=== PATIENT | female | born 1960 | race African-American/Black ===

== ENCOUNTER 2016-05-25 14:38 | Emergency (ER) | payer MEDICAID, MEDICARE, OTHER ==
[~2016-05-25] VITALS: Ht 162.6 cm; Wt 99.8 kg
[~2016-05-25 14:38] MED LIST: ALBUTEROL SULF8.5 GM INH; ASPIR 8181 MG ORAL; AZITHROMYCIN250 MG ORAL; BENADRYL25 MG PO; CIPROFLOXACIN500 M2 ORAL; COZAAR25 MG ORAL; ENALAPRIL MALEA20 MG ORAL; GUAIFENESIN-CO118 M1 ORAL; IBUPROFEN600 MG ORAL; METFORMIN HCL500 M1 ORAL; METOPROLOL TART50 MG ORAL; NORCO 5-325 TA1 EACH ORAL
[2016-05-25 15:10] VITALS: BP 155/95
[2016-05-25] MEDS ORDERED: IBUPROFEN600 MG ORAL (15:28)
[2016-05-25] MEDS ORDERED: ZITHROMAX250 MG ORAL (15:28)
[2016-05-25] MEDS ORDERED: PROMETHAZINE-D118 ML ORAL (15:28)
[2016-05-25 15:35] VITALS: BP 155/95
--- NOTE | 2016-05-25 22:31 | Emergency Room Report ---
History of Present Illness General Chief Complaint: Sore Throat Present Illness HPI The patient is a 55-year-old female presenting for sore throat which began one week prior. Patient states pain is a 5/10 dull ache to the throat and is worse with swallowing. No radiation of pain. The patient also admits to a dry cough. The patient denies any sick contacts or recent travel. The patient denies any other symptoms including nausea, vomiting, fever, chills, night sweats, rash, headache Allergies: Coded Allergies: No Known Allergies (Unverified , 11/23/12) Patient History Past Medical History: see triage record Pertinent Family History: none Last Menstrual Period: FUll hysterectomy : 1 Para: 1 Reviewed Nursing Documentation: PMH: Agreed, PSxH: Agreed Nursing Documentation-PMH Hx Hypertension: Yes Hx Diabetes: Yes Hx Cerebrovascular Accident: Yes Review of Systems All Other Systems: negative except mentioned in HPI Physical Exam Vital Signs Date Time Temp Pulse Resp B/P Pulse Ox O2 Delivery O2 Flow Rate FiO2 05/25/16 14:47 98.2 74 16 155/95 97 Room Air Sp02 EP Interpretation: reviewed, normal General Appearance: no apparent distress, alert, GCS 15, non-toxic Head: normocephalic, atraumatic Eyes: bilateral eye PERRL, bilateral eye normal inspection ENT: normal voice, TMs + canals normal, uvula midline, moist mucus membranes, tonsillar swelling, pharyngeal erythema, tonsillar exudate Neck: full range of motion, supple/symm/no masses Respiratory: chest non-tender, lungs clear, normal breath sounds, no wheezing, speaking full sentences Cardiovascular #1: regular rate, rhythm, no edema Musculoskeletal: back normal, gait/station normal, normal range of motion, non- tender Neurologic: alert, oriented x3, responsive, motor strength/tone normal, sensory intact, speech normal Psychiatric: judgement/insight normal, memory normal, mood/affect normal, no suicidal/homicidal ideation Skin: normal color, no rash, warm/dry, well hydrated Lymphatic: adenopathy - cervical Medical Decision Making PA Attestation Dr. Craven is my supervising physician. Patient management was discussed with my supervising physician Diagnostic Impression: Primary Impression: Pharyngitis, acute ER Course The patient is a 55-year-old female presenting for sore throat which began one week prior. Differential diagnosis include but not limited to pharyngitis, sinusitis, AOM, bronchitis, PNA Physical exam: Afebrile. No apparent distress. HEENT: Has bilateral tonsillar edema, erythema, and exudate. Uvula midline. Otherwise exam is unremarkable The patient is given Motrin for pain and will be discharged with a prescription for azithromycin and promethazine DM. ER precautions given Last Vital Signs Date Time Temp Pulse Resp B/P Pulse Ox O2 Delivery O2 Flow Rate FiO2 05/25/16 15:35 98.2 84 16 155/95 97 Room Air Status: improved Disposition: HOME, SELF-CARE Condition: Improved Scripts D-Methorphan Hb/Prometh Hcl* (PROMETHAZINE-DM SYRUP*) 118 Ml Syrup 5 ML ORAL Q6H Y for For Cough, #118 ML 0 Refills Prov: MELY MATTHEWS 05/25/16 Ibuprofen* (MOTRIN*) 600 Mg Tablet 600 MG ORAL Q8H Y for For Pain, #30 TAB 0 Refills Prov: MELY MATTHEWS 05/25/16 Azithromycin* (ZITHROMAX*) 250 Mg Tablet 250 MG ORAL DAILY, #6 TAB 0 Refills Take two tables once daily for 1 day, then one tablet once daily for 4 days. Prov: MELY MATTHEWS 05/25/16 Referrals: [facility],REFERR[facility] (PCP) Departure Forms: Return to Work Return to Work Date: May 27, 2016 Patient Instructions: Pharyngitis, Sore Throat Additional Instructions: I discussed my findings with the patient. All questions and concerns have been answered. Treatment and medication compliance have been addressed. I advised the patient that they need to follow up with PMD in 3-5 days. Return to ED if pain remains or worsens, cough worsens or remains, you notice blood in your sputum, you notice wheezing, you experience a fever, or if needed for any reason. Patient verbalized understanding of discharge instructions. MELY MATTHEWS May 25, 2016 22:31
== END 2016-05-25 15:35 | disposition home or self-care (01) ==
LOC: EMR 15:18
DX: J02.9 Acute pharyngitis, unspecified (principal); I10 Essential (primary) hypertension; E11.9 Type 2 diabetes mellitus without complications; Z86.73 Personal history of transient ischemic attack (TIA), and cerebral infarction without residual deficits; Z90.710 Acquired absence of both cervix and uterus
CPT/HCPCS: 99284

== ENCOUNTER 2016-08-05 03:01 | Emergency (ER) | payer OTHER ==
[~2016-08-05] VITALS: Ht 162.6 cm; Wt 99.8 kg
[~2016-08-05 03:01] MED LIST changes: +PROMETHAZINE-D118 ML ORAL; +ZITHROMAX250 MG ORAL
[2016-08-05 03:15] VITALS: BP 159/65
--- NOTE | 2016-08-05 03:26 | Emergency Room Report ---
History of Present Illness General Chief Complaint: Abdominal Pain Source: Patient Present Illness HPI Patient is a 55-year-old female who presented after increased difficulty with right flank pain. Patient had gradual onset of symptoms. Showed nonproductive cough. Patient said that she had increased pain with movement. She denies chest pain or pressure. She the denies fever. She had not been vomiting. Pain did not change with exertion. She's had similar prior symptoms. Allergies: Coded Allergies: No Known Allergies (Unverified , 11/23/12) Patient History Past Medical History: see triage record Last Menstrual Period: NOT ANYMORE Now: No : 3 Reviewed Nursing Documentation: PMH: Agreed, PSxH: Agreed Nursing Documentation-PMH Hx Hypertension: Yes Hx Diabetes: Yes Hx Cerebrovascular Accident: Yes Review of Systems All Other Systems: negative except mentioned in HPI Physical Exam Vital Signs Date Time Temp Pulse Resp B/P Pulse Ox O2 Delivery O2 Flow Rate FiO2 08/05/16 03:09 97.9 78 18 159/65 97 Room Air Sp02 EP Interpretation: reviewed, normal General Appearance: normal inspection, well appearing, no apparent distress, alert, GCS 15 Head: atraumatic ENT: normal ENT inspection, hearing grossly normal, normal voice Neck: normal inspection, full range of motion, supple, no bony tend Respiratory: normal inspection, normal breath sounds, no respiratory distress, no retraction, no wheezing Cardiovascular #1: regular rate, rhythm, no edema Gastrointestinal: normal inspection, normal bowel sounds, non tender, soft, no guarding, no hernia Genitourinary: no CVA tenderness Musculoskeletal: normal inspection, back normal, normal range of motion Neurologic: normal inspection, alert, oriented x3, responsive, speech normal Psychiatric: normal inspection, judgement/insight normal, mood/affect normal Skin: normal inspection, normal color, no rash Medical Decision Making Diagnostic Impression: Primary Impression: Flank pain Additional Impression: UTI (urinary tract infection) ER Course Patient presented for flank pain. Differential diagnosis included was not limited to pneumonia, renal stone, rib fracture, pulmonary embolism, ulcer, enteritis, pyelonephritis among others. Patient was given Toradol for pain. A urinalysis notable for evidence urine infection. The patient is advised to follow up with primary care doctor in 1-2 days. Patient is advised to return if any worsening condition or if any changes in status that are concerning. Labs Test 08/05/16 04:30 Urine Color Pale yellow Urine Appearance Clear Urine pH 6 (4.5-8.0) Urine Specific [place] 1.005 (1.005-1.035) Urine Protein Negative (NEGATIVE) Urine Glucose (UA) Negative (NEGATIVE) Urine Ketones Negative (NEGATIVE) Urine Occult Blood Negative (NEGATIVE) Urine Nitrite Negative (NEGATIVE) Urine Bilirubin Negative (NEGATIVE) Urine Urobilinogen Normal MG/DL (0.0-1.0) Urine Leukocyte Esterase 2+ (NEGATIVE) Urine RBC 0-2 /HPF (0 - 2) Urine WBC 20-30 /HPF (0 - 2) Urine Squamous Epithelial Cells Many /LPF (NONE/OCC) Urine Bacteria Few /HPF (NONE) Chest X-Ray Diagnostic Results EP Interpretation: Yes Findings: no consolidation, no effusion, no pneumothorax, no acute cardiopulmonary disease Number of Views: 1 Last Vital Signs Date Time Temp Pulse Resp B/P Pulse Ox O2 Delivery O2 Flow Rate FiO2 08/05/16 03:09 97.9 78 18 159/65 97 Room Air Status: improved Disposition: HOME, SELF-CARE Condition: Stable Scripts Cephalexin* (KEFLEX*) 500 Mg Capsule 500 MG ORAL Q6H, #28 CAP 0 Refills Prov: Anil Dubose 08/05/16 Ibuprofen* (MOTRIN*) 600 Mg Tablet 600 MG ORAL Q8H Y for For Pain, #30 TAB Prov: Anil Dubose 08/05/16 Anil Dubose Aug 05, 2016 03:26
[2016-08-05] MEDS ORDERED: Ketorolac 60mg Inj IM ONE (03:30)
[2016-08-05 04:47] LABS: APPEARANCE,URINE CLEAR; KETONES,URINE NEGATIVE (NEGATIVE); LEUKOCYTE ESTERASE ,URINE 2+ (NEGATIVE); NITRITE,URINE NEGATIVE (NEGATIVE); PH,URINE 6 (4.5-8.0); PROTEIN,URINE NEGATIVE (NEGATIVE); UROBILINOGEN,URINE NORMAL MG/DL (0.0-1.0)
[2016-08-05 04:54] LABS: BACTERIA,URINE FEW /HPF; RBC,URINE 0-2 /HPF (0 - 2); SQUAMOUS EPITHELIAL CELL,UR MANY /LPF (NONE/OCC); WBC,URINE 20-30 /HPF (0 - 2)
[2016-08-05] MEDS ORDERED: KEFLEX500 MG ORAL (04:54)
[2016-08-05] MEDS ORDERED: IBUPROFEN600 MG ORAL (04:54)
[2016-08-05 05:22] VITALS: BP 155/68
--- NOTE | 2016-08-05 08:34 | Diagnostic Imaging Report ---
Indications: Shortness of breath Technique: AP chest Findings: Comparison: 2012 Image quality degraded by body habitus, lordotic projection. Lung apices excluded from image. Cardiac silhouette remains normal in size. Pulmonary vasculature remains within normal limits. Visualized portions of lungs and pleura remain clear. IMPRESSION: No evidence of acute disease, with limitation as described, unchanged Recommend repeat with proper technique.
== END 2016-08-05 05:15 | disposition home or self-care (01) ==
LOC: EMR 03:54
DX: R10.9 Unspecified abdominal pain (principal); N39.0 Urinary tract infection, site not specified; R05 Cough; E11.9 Type 2 diabetes mellitus without complications; I10 Essential (primary) hypertension; Z86.73 Personal history of transient ischemic attack (TIA), and cerebral infarction without residual deficits
CPT/HCPCS: 71010; 81003; 87086; 96372; 99284

== ENCOUNTER 2016-11-07 10:00 | Emergency (ER) | payer MEDICARE, OTHER ==
[~2016-11-07] VITALS: Ht 162.6 cm; Wt 95.3 kg
[~2016-11-07 10:00] MED LIST changes: +KEFLEX500 MG ORAL
--- NOTE | 2016-11-07 10:54 | Emergency Room Report ---
History of Present Illness General Chief Complaint: Upper Respiratory Illness Source: Patient Present Illness HPI Patient reports approximately 4 weeks of cough, upper respiratory symptoms with light production of phlegm and occasional vomiting with this cough. She saw approximately 2 weeks ago, and was prescribed cough syrup as well as an albuterol inhaler. She does not smoke, does not have a history of frequent pneumonias and does not have a history of asthma, has a family history of asthma. She has appointment on with her doctor for followup. She has been using multiple [id number] medications to include Dolcin. As well as Tessalon Perles which were described. Describes chest pain with cough as well as chest discomfort with deep breath at this time, as well as inability sleep and/or rest. Allergies: Coded Allergies: No Known Allergies (Unverified , 11/23/12) Patient History Past Medical History: see triage record Social History: Denies: alcohol use, drug use, smoking Now: No Immunizations: UTD Reviewed Nursing Documentation: PMH: Agreed Nursing Documentation-PMH Hx Hypertension: Yes Hx Diabetes: Yes Hx Cerebrovascular Accident: Yes Review of Systems Constitutional: Reports: malaise, weakness Respiratory: Reports: cough, shortness of breath, sputum All Other Systems: negative except mentioned in HPI Physical Exam Vital Signs Date Time Temp Pulse Resp B/P Pulse Ox O2 Delivery O2 Flow Rate FiO2 11/07/16 10:06 97.5 84 20 183/90 97 Sp02 EP Interpretation: reviewed, normal General Appearance: no apparent distress, alert, other - 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 Eyes: bilateral eye normal inspection ENT: normal ENT inspection, hearing grossly normal, normal voice Neck: normal inspection, full range of motion, supple, no bony tend Respiratory: normal inspection, lungs clear, normal breath sounds, no respiratory distress, no retraction, no wheezing Cardiovascular #1: regular rate, rhythm, no edema Gastrointestinal: normal inspection, normal bowel sounds, non tender, soft, no guarding, no hernia Genitourinary: no CVA tenderness Musculoskeletal: normal inspection, back normal, normal range of motion Neurologic: normal inspection, alert, responsive, speech normal Psychiatric: normal inspection, judgement/insight normal, mood/affect normal Skin: normal inspection, normal color, no rash Medical Decision Making Diagnostic Impression: Primary Impression: acute bronchitis Additional Impression: tobacco abuse ER Course patient is here with a relatively moderate to mild symptoms. She states that she is having chest discomfort with this coughing pain. At this time the patient is overall stable appearing, without wheezing or without fevers or chills. We'll obtain chest x-ray as well as treat cough suppressant and pain control. And followup chest x-ray to determine if patient regarding antibiotics or followup with primary Dr. Chest x-ray reviewed, no acute sign of infection. Based on the patient's chronicity, 4 weeks of symptoms. All start her on course of antibiotics. Amoxicillin as well as Robitussin, a.c. and ibuprofen for discomfort. Patient should followup with her doctor in 2 days for reexamination. Chest X-Ray Diagnostic Results Chest X-Ray Diagnostic Results : Chest X-Ray Ordered: Yes # of Views/Limited/Complete: 2 View EP Interpretation: No Interpretation: no consolidation, no effusion, no pneumothorax, no acute cardiopulmonary disease Impression: No acute disease Reevaluation Time: 12:00 Last Vital Signs Date Time Temp Pulse Resp B/P Pulse Ox O2 Delivery O2 Flow Rate FiO2 11/07/16 10:06 97.5 84 20 183/90 97 Status: improved Condition: Stable Scripts Amoxicillin* (AMOXIL*) 500 Mg Capsule 500 MG ORAL THREE TIMES A DAY, #21 CAP Prov: Rickey Greenberg MD 11/07/16 Ibuprofen* (MOTRIN*) 600 Mg Tablet 600 MG ORAL THREE TIMES A DAY, #30 TAB 0 Refills Prov: Rickey Greenberg MD 11/07/16 Guaifenesin/Codeine Phos* (ROBITUSSIN AC*) 118 Ml Liquid 1 TSP ORAL Q6H Y for For Cough, #118 ML 0 Refills Prov: Rickey Greenberg MD 11/07/16 Referrals: NON PHYSICIAN (PCP) Rickey Greenberg MD Nov 07, 2016 10:54
[2016-11-07 10:55] VITALS: BP 163/106
[2016-11-07] MEDS ORDERED: guaiFENesin w/Codeine 5ml Liq ud ORAL ONE (11:00)
[2016-11-07] MEDS ORDERED: TESSALON PERLE100 MG ORAL (11:21)
--- NOTE | 2016-11-07 11:51 | Diagnostic Imaging Report ---
Indication: Cough for one week Technique: 2 views of the chest Comparison: none. Findings: Lungs and pleural spaces are clear. Heart size is normal. Bones are unremarkable.. Impression: No acute process
[2016-11-07] MEDS ORDERED: IBUPROFEN600 MG ORAL (11:58)
[2016-11-07] MEDS ORDERED: AMOXICILLIN500 MG ORAL (11:58)
[2016-11-07] MEDS ORDERED: GUAIFENESIN-CO118 M1 ORAL (11:58)
[2016-11-07 12:20] VITALS: BP 146/89
== END 2016-11-07 12:20 | disposition home or self-care (01) ==
LOC: EMR 10:40
DX: J20.9 Acute bronchitis, unspecified (principal); Z72.0 Tobacco use; I10 Essential (primary) hypertension; E11.9 Type 2 diabetes mellitus without complications; Z86.73 Personal history of transient ischemic attack (TIA), and cerebral infarction without residual deficits
CPT/HCPCS: 71020; 99284

== ENCOUNTER 2017-08-26 10:43 | Inpatient (IN) | payer MEDICARE, OTHER ==
[~2017-08-26] VITALS: Ht 160 cm; Wt 122.5 kg
[~2017-08-26 10:43] MED LIST changes: +AMOXICILLIN500 MG ORAL; +TESSALON PERLE100 MG ORAL
[2017-08-26 11:00] VITALS: BP 129/74
[2017-08-26] MEDS ORDERED: Solu-MEDROL 125mg Inj IVP ONE (11:00)
[2017-08-26] MEDS ORDERED: Ipratropium 0.02% Inh Soln 2.5ml UD HHN ONE (11:00)
[2017-08-26] MEDS ORDERED: Albuterol ud Inhalation HHN ONE (11:00)
[2017-08-26] MEDS ORDERED: Morphine Sulfate 4mg/ml Inj IVP ONE (11:00)
[2017-08-26] MEDS ORDERED: IMODIUM2 MG ORAL (11:26)
[2017-08-26] MEDS ORDERED: METFORMIN HCL850 M1 ORAL (11:26)
[2017-08-26] MEDS ORDERED: DOCUSATE SODIU100 MG ORAL (11:26)
[2017-08-26] MEDS ORDERED: ATORVASTATIN CA20 MG ORAL (11:26)
[2017-08-26] MEDS ORDERED: AMLODIPINE BESY10 MG ORAL (11:26)
[2017-08-26] MEDS ORDERED: MACROBID100 MG ORAL (11:26)
[2017-08-26] MEDS ORDERED: OMEPRAZOLE20 M2 ORAL (11:26)
[2017-08-26] MEDS ORDERED: AMLODIPINE BESYL5 MG ORAL (11:26)
--- NOTE | 2017-08-26 11:33 | Emergency Room Report ---
History of Present Illness General Chief Complaint: General Complaint Source: Patient Present Illness HPI The patient presents with chills. She's recently taken antibiotics (Macrobid) for a urinary tract infection and possibly a kidney infection. She also is wheezing and has chest pain when she coughs. She denies any blood in her sputum. She is still smoking. She's out of breath when she is walking with minimal exertion. She denies any calf pain or edema. The pain is fairly severe in her chest rated 10/10, sharp and aching, pleuritic. She denies dysuria at this time. There is no vomiting or diarrhea and no abdominal pain. She does not use an inhaler at this time but has had COPD in the past and asthma. Prior stroke with blindness L eye. DM on oral medications. 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 Last Menstrual Period: Post Now: No Reviewed Nursing Documentation: PMH: Agreed; PSxH: Agreed Nursing Documentation-PMH Hx Hypertension: Yes Hx Diabetes: Yes Hx Cerebrovascular Accident: Yes Review of Systems All Other Systems: negative except mentioned in HPI Physical Exam Vital Signs Date Time Temp Pulse Resp B/P (MAP) Pulse Ox O2 Delivery O2 Flow Rate FiO2 08/26/17 10:50 98.5 120 22 127/66 85 Room Air 98.4 08/26/17 11:20 2.0 28 Sp02 EP Interpretation: reviewed, normal General Appearance: well appearing, no apparent distress - but c/o pain, GCS 15 , obese, other - tobacco smell Head: normocephalic Eyes: bilateral eye normal inspection, bilateral eye PERRL ENT: moist mucus membranes Neck: supple Respiratory: wheezing, expiration, inspiration, other - some CWT Cardiovascular #1: regular rate, rhythm Cardiovascular #2: 2+ radial (R) Gastrointestinal: normal inspection, normal bowel sounds, non tender, no mass, non-distended, overweight Genitourinary: no CVA tenderness Musculoskeletal: back normal, gait/station normal, normal range of motion, no calf tenderness, Shaun's Sign negative Neurologic: alert, oriented x3, grossly normal Psychiatric: mood/affect normal Skin: normal inspection, warm/dry Medical Decision Making Diagnostic Impression: Primary Impression: Pneumonitis Additional Impressions: Hypoxia Bronchospasm Tobacco abuse UTI (urinary tract infection) Qualified Codes: N30.00 - Acute cystitis without hematuria ER Course The patient presents with chills cough and spasm. Differential includes pneumonia, bronchitis, urinary tract infection, sepsis amongst others. She'll be evaluated with EKG, chest x-ray and labs. The patient be treated with Solu Medrol, breathing treatments and analgesia including Zofran and morphine. She' s on antibiotics recently and this may confound her urinary findings. The patient is hypoxemic and therefore will require reevaluation but most likely will need hospitalization. Though patient has severe pleuritic chest pain, PE is less likely based on exam. The history is more infectious and with bronchospasm. EKG without injury. CXR with increased gutiérrez (compared to prior) c/w pneumonitis or more diffuse pulmonary infection. Labs with elevated WBC and lactate. BNP normal. Pyuria. Antibiotics were ordered and fluid resuscitation ordered (no evidence of severe sepsis). Patient improved (pain and breathing) and admitted to medical floor, Dr. Gong. Laboratory Tests Test 08/26/17 11:10 08/26/17 12:41 08/26/17 13:15 White Blood Count 12.6 K/UL (4.8-10.8) H Red Blood Count 5.58 M/UL (4.20-5.40) H Hemoglobin 15.8 G/DL (12.0-16.0) Hematocrit 48.6 % (37.0-47.0) H Mean Corpuscular Volume 87 FL (80-99) Mean Corpuscular Hemoglobin 28.3 PG (27.0-31.0) Mean Corpuscular Hemoglobin Concent 32.5 G/DL (32.0-36.0) Red Cell Distribution Width 11.8 % (11.6-14.8) Platelet Count 357 K/UL (150-450) Mean Platelet Volume 6.1 FL (6.5-10.1) L Neutrophils (%) (Auto) 83.2 % (45.0-75.0) H Lymphocytes (%) (Auto) 8.6 % (20.0-45.0) L Monocytes (%) (Auto) 4.9 % (1.0-10.0) Eosinophils (%) (Auto) 2.6 % (0.0-3.0) Basophils (%) (Auto) 0.7 % (0.0-2.0) Prothrombin Time 9.2 SEC (9.30-11.50) L Prothrombin Time INR 0.9 (0.9-1.1) PTT 26 SEC (23-33) Sodium Level 136 MMOL/L (136-145) Potassium Level 4.2 MMOL/L (3.5-5.1) Chloride Level 101 MMOL/L (98-107) Carbon Dioxide Level 25 MMOL/L (21-32) Anion Gap 10 mmol/L (5-15) Blood Urea Nitrogen 12 mg/dL (7-18) Creatinine 0.9 MG/DL (0.55-1.30) Estimate Glomerular Filtration Rate > 60 mL/min (>60) Glucose Level 173 MG/DL (74-106) H Lactic Acid Level 2.40 mmol/L (0.66-2.22) H 2.20 mmol/L (0.66-2.22) Calcium Level 9.5 MG/DL (8.5-10.1) Total Bilirubin 0.8 MG/DL (0.2-1.0) Aspartate Amino Transferase (AST) 17 U/L (15-37) Alanine Aminotransferase (ALT) 27 U/L (12-78) Alkaline Phosphatase 157 U/L (46-116) H Total Creatine Kinase 114 U/L (26-308) Troponin I 0.000 ng/mL (0.000-0.056) Pro-B-Type Natriuretic Peptide 69 pg/mL (0-125) Total Protein 8.7 G/DL (6.4-8.2) H Albumin 3.8 G/DL (3.4-5.0) Globulin 4.9 g/dL Albumin/Globulin Ratio 0.8 (1.0-2.7) L Urine Color Yellow Urine Appearance Clear Urine pH 5 (4.5-8.0) Urine Specific [place] 1.010 (1.005-1.035) Urine Protein 1+ (NEGATIVE) H Urine Glucose (UA) Negative (NEGATIVE) Urine Ketones Negative (NEGATIVE) Urine Occult Blood 1+ (NEGATIVE) H Urine Nitrite Negative (NEGATIVE) Urine Bilirubin Negative (NEGATIVE) Urine Urobilinogen 1 MG/DL (0.0-1.0) H Urine Leukocyte Esterase 3+ (NEGATIVE) H Urine RBC 0-2 /HPF (0 - 2) Urine WBC 5-10 /HPF (0 - 2) H Urine Squamous Epithelial Cells Few /LPF (NONE/OCC) Urine Bacteria Few /HPF (NONE) EKG Diagnostic Results Rate: tachycardiac Rhythm: NSR ST Segments: no acute changes - Right bundle-branch block and biatrial enlargement Rhythm Strip Diag. Results EP Interpretation: yes Rhythm: no PVC's, no ectopy, other - Sinus tachycardia Chest X-Ray Diagnostic Results Chest X-Ray Diagnostic Results : Chest X-Ray Ordered: Yes Indication: Other EP Interpretation: Yes Interpretation: no effusion, no pneumothorax, other - bilateral infiltrates Impression: Other Electronically Signed by: Pancho Prescott MD Last Vital Signs Date Time Temp Pulse Resp B/P (MAP) Pulse Ox O2 Delivery O2 Flow Rate FiO2 08/26/17 21:01 94 22 Nasal Cannula 2.0 28 08/26/17 20:15 97.3 133/90 93 97.3 Status: improved Disposition: ADMITTED INPATIENT Condition: Serious Pancho Prescott M.D. August 26, 2017 11:33
[2017-08-26 11:50] LABS: BASOPHILS % (AUTO) 0.7 % (0.0-2.0); EOSINOPHILS % (AUTO) 2.6 % (0.0-3.0); HEMATOCRIT 48.6 % (37.0-47.0); HEMOGLOBIN 15.8 G/DL (12.0-16.0); LYMPHOCYTES % (AUTO) 8.6 % (20.0-45.0); MEAN CORPUSCULAR VOLUME 87 FL (80-99); MONOCYTES % (AUTO) 4.9 % (1.0-10.0); NEUTROPHILS % (AUTO) 83.2 % (45.0-75.0); PLATELET COUNT 357 K/UL (150-450); RED BLOOD COUNT 5.58 M/UL (4.20-5.40); RED CELL DISTRIBUTION WIDTH 11.8 % (11.6-14.8); WHITE BLOOD COUNT 12.6 K/UL (4.8-10.8)
[2017-08-26 11:54] LABS: ANION GAP 10 mmol/L (5-15); BLOOD UREA NITROGEN 12 mg/dL (7-18); CALCIUM 9.5 MG/DL (8.5-10.1); CARBON DIOXIDE 25 MMOL/L (21-32); CHLORIDE 101 MMOL/L (98-107); CREATININE 0.9 MG/DL (0.55-1.30); POTASSIUM 4.2 MMOL/L (3.5-5.1); SODIUM 136 MMOL/L (136-145)
[2017-08-26 12:00] LABS: INR 0.9 (0.9-1.1)
[2017-08-26 12:12] LABS: ALANINE AMINOTRANSFERASE 27 U/L (12-78); ALBUMIN 3.8 G/DL (3.4-5.0); ALBUMIN/GLOBULIN RATIO 0.8 (1.0-2.7); ALKALINE PHOSPHATASE 157 U/L (46-116); ASPARTATE AMINO TRANSFERASE 17 U/L (15-37); BILIRUBIN,TOTAL 0.8 MG/DL (0.2-1.0); CREATINE KINASE 114 U/L (26-308)
[2017-08-26] MEDS ORDERED: Cefepime HCl 1 GM in D5W 55 ML IVPB ONE (12:15)
--- NOTE | 2017-08-26 12:24 | Diagnostic Imaging Report ---
EXAM: XR Chest, 1 View CLINICAL HISTORY: Chest pain TECHNIQUE: Frontal view of the chest. COMPARISON: No relevant prior studies available. FINDINGS: Lungs: Increased interstitial markings. No focal consolidation. Pleural space: Unremarkable. Costophrenic angles appear sharp. No pneumothorax. Heart: Unremarkable. No cardiomegaly. Mediastinum: Unremarkable. Bones/joints: Unremarkable. Vasculature: Curvilinear calcifications in the aortic arch. Tubes, lines and devices: EKG leads overlie the thorax. IMPRESSION: Increased interstitial markings. This may be related to pulmonary vascular congestion versus viral/interstitial pneumonitis.
[2017-08-26 12:58] LABS: APPEARANCE,URINE CLEAR; BILIRUBIN, URINE NEGATIVE (NEGATIVE); GLUCOSE, URINE (UA) NEGATIVE (NEGATIVE); KETONES,URINE NEGATIVE (NEGATIVE); LEUKOCYTE ESTERASE ,URINE 3+ (NEGATIVE); NITRITE,URINE NEGATIVE (NEGATIVE); PH,URINE 5 (4.5-8.0); PROTEIN,URINE 1+ (NEGATIVE); UROBILINOGEN,URINE 1 MG/DL (0.0-1.0)
[2017-08-26 13:03] VITALS: BP 110/95
[2017-08-26 13:08] LABS: COLOR,URINE YELLOW
[2017-08-26 14:59] VITALS: BP 122/61
[2017-08-26 16:00] VITALS: BP 124/64
[2017-08-26] MEDS ORDERED: Albuterol/Ipratropium 3ml neb HHN PRN (16:15)
[2017-08-26] MEDS ORDERED: LORazepam Inj 2mg/ml 1ml IV PRN (16:15)
[2017-08-26] MEDS ORDERED: Promethazine/Codeine 5ml UD ORAL PRN (16:15)
[2017-08-26] MEDS ORDERED: Miralax 17gm pkt ORAL PRN (16:15)
[2017-08-26] MEDS: NovoLOG Insulin Flexpen SUBQ SCH ×2 (16:59→21:10)
[2017-08-26] MEDS: Vancomycin 1250mg/D5W 250ml 250 ML IVPB SCH (18:04)
[2017-08-26 20:15] VITALS: BP 133/90
[2017-08-26] MEDS: Heparin 5000 units/ml inj SUBQ SCH (21:09)
[2017-08-26] MEDS: Cefepime HCl 2 GM in D5W 110 ML IV SCH (21:09)
[2017-08-27 00:17] VITALS: BP 133/66
[2017-08-27] MEDS: Morphine Sulfate 4mg/ml Inj IVP PRN ×2 (00:25→22:25)
[2017-08-27 04:27] VITALS: BP 150/79
[2017-08-27] MEDS: Vancomycin 1250mg/D5W 250ml 250 ML IVPB SCH (05:37)
[2017-08-27] MEDS: NovoLOG Insulin Flexpen SUBQ SCH ×4 (05:38→20:36)
[2017-08-27 08:11] LABS: BASOPHILS % (AUTO) 0.6 % (0.0-2.0); EOSINOPHILS % (AUTO) 0.6 % (0.0-3.0); HEMATOCRIT 40.5 % (37.0-47.0); HEMOGLOBIN 13.5 G/DL (12.0-16.0); LYMPHOCYTES % (AUTO) 10.6 % (20.0-45.0); MEAN CORPUSCULAR VOLUME 87 FL (80-99); MONOCYTES % (AUTO) 4.3 % (1.0-10.0); NEUTROPHILS % (AUTO) 83.9 % (45.0-75.0); PLATELET COUNT 273 K/UL (150-450); RED BLOOD COUNT 4.66 M/UL (4.20-5.40); RED CELL DISTRIBUTION WIDTH 11.7 % (11.6-14.8); WHITE BLOOD COUNT 14.4 K/UL (4.8-10.8)
[2017-08-27 08:22] LABS: ALBUMIN 3.2 G/DL (3.4-5.0); ANION GAP 8 mmol/L (5-15); BLOOD UREA NITROGEN 15 mg/dL (7-18); CALCIUM 9.4 MG/DL (8.5-10.1); CARBON DIOXIDE 25 MMOL/L (21-32); CHLORIDE 105 MMOL/L (98-107); CREATININE 0.7 MG/DL (0.55-1.30); PHOSPHORUS 2.8 MG/DL (2.5-4.9); SODIUM 138 MMOL/L (136-145)
[2017-08-27 09:39] VITALS: BP 122/67
[2017-08-27] MEDS: Losartan 25mg tab ORAL SCH (09:51)
[2017-08-27] MEDS: Cefepime HCl 2 GM in D5W 110 ML IV SCH (09:59)
[2017-08-27] MEDS: Heparin 5000 units/ml inj SUBQ SCH ×2 (10:01→20:36)
[2017-08-27 12:00] VITALS: BP 121/72
--- NOTE | 2017-08-27 14:08 | Consultation ---
Consult Note Consult Note [id number] Vamsi Jauregui MD August 27, 2017 14:08
--- NOTE | 2017-08-27 15:43 | Consultation ---
History of Present Illness General Chief Complaint: General Complaint Present Illness Allergies: Coded Allergies: No Known Allergies (Unverified , 11/23/12) Medication History Scheduled Albuterol Sulfate* (Albuterol Sulfate Mdi*), 2 PUFF INH Q4H Albuterol Sulfate* (Albuterol Sulfate Mdi*), 2 PUFF INH Q3H Amlodipine Besylate* (Amlodipine Besylate*), 5 MG ORAL DAILY, (Reported) Amlodipine Besylate* (Amlodipine Besylate*), 10 MG ORAL DAILY, (Reported) Amoxicillin* (Amoxil*), 500 MG ORAL THREE TIMES A DAY Aspirin* (Aspir 81*), 81 MG ORAL DAILY, (Reported) Atorvastatin Calcium* (Atorvastatin Calcium*), 20 MG ORAL BEDTIME, (Reported) Azithromycin* (Zithromax*), 250 MG ORAL DAILY Azithromycin* (Zithromax*), 250 MG ORAL DAILY Benzonatate* (Tessalon Perle*), 100 MG ORAL THREE TIMES A DAY, (Reported) Cephalexin* (Keflex*), 500 MG ORAL Q6H Ciprofloxacin Hcl* (Ciprofloxacin Hcl*), 500 MG ORAL Q12H Diphenhydramine Hcl* (Benadryl*), 25 MG PO Q6H, (Reported) Docusate Sodium* (Docusate Sodium*), 100 MG ORAL TWICE A DAY, (Reported) Enalapril Maleate* (Enalapril Maleate*), 20 MG ORAL DAILY, (Reported) Ibuprofen* (Motrin*), 600 MG ORAL THREE TIMES A DAY Losartan Potassium* (Cozaar*), 25 MG ORAL DAILY Metformin Hcl* (Metformin Hcl*), 500 MG ORAL TWICE A DAY, (Reported) Metformin Hcl* (Metformin Hcl*), 850 MG ORAL BID, (Reported) Metoprolol Tartrate* (Metoprolol Tartrate*), 50 MG ORAL DAILY, (Reported) Nitrofurantoin Monohyd/M-Cryst (Nitrofurantoin Cook-Mcr 100 mg), 100 MG ORAL EVERY 12 HOURS, (Reported) Omeprazole (Omeprazole), 20 MG ORAL AC, (Reported) Scheduled PRN D-Methorphan Hb/Prometh Hcl* (Promethazine-Dm Syrup*), 5 ML ORAL Q6H PRN for For Cough Guaifenesin/Codeine Phos* (Robitussin Ac*), 5 ML ORAL Q6H PRN for For Cough Guaifenesin/Codeine Phos* (Robitussin Ac*), 1 TSP ORAL Q6H PRN for For Cough Hydrocodone Bit/Acetaminophen 5-325* (Starbuck 5-325*), 1 TAB ORAL Q6H PRN for For Pain Ibuprofen* (Motrin*), 600 MG ORAL Q8H PRN for For Pain Ibuprofen* (Motrin*), 600 MG ORAL Q8H PRN for For Pain Miscellaneous Medications Loperamide HCl (Loperamide), 2 MG ORAL, (Reported) Patient History Healthcare decision maker Resuscitation status Advanced Directive on File Physical Exam Last 24 Hour Vital Signs Date Time Temp Pulse Resp B/P (MAP) Pulse Ox O2 Delivery O2 Flow Rate FiO2 08/27/17 12:00 97.5 79 19 121/72 97 97.5 08/27/17 09:51 122/67 08/27/17 09:51 82 122/67 08/27/17 09:39 98.1 82 18 122/67 97 Room Air 98.1 08/27/17 07:56 93 20 Room Air 21 08/27/17 04:27 97.9 87 18 150/79 95 97.9 08/27/17 01:00 97.2 08/27/17 00:25 97.2 08/27/17 00:17 97.2 95 18 133/66 95 97.2 08/27/17 00:17 95 Room Air 08/26/17 21:01 94 22 Nasal Cannula 2.0 28 08/26/17 20:15 97.3 94 19 133/90 93 97.3 08/26/17 20:15 93 Room Air 08/26/17 16:00 98.4 100 20 124/64 100 Room Air 98.4 Intake and Output 08/26/17 08/27/17 19:00 07:00 Intake Total 1461.667 ml 893.333 ml Balance 1461.667 ml 893.333 ml Intake Oral 240 ml IV Total 1221.667 ml 893.333 ml # Voids 2 10 Laboratory Tests Test 08/27/17 04:00 08/27/17 06:00 Sodium Level 138 MMOL/L (136-145) Potassium Level 4.0 MMOL/L (3.5-5.1) Chloride Level 105 MMOL/L (98-107) Carbon Dioxide Level 25 MMOL/L (21-32) Anion Gap 8 mmol/L (5-15) Blood Urea Nitrogen 15 mg/dL (7-18) Creatinine 0.7 MG/DL (0.55-1.30) Estimat Glomerular Filtration Rate > 60 mL/min (>60) Glucose Level 229 MG/DL (74-106) H Calcium Level 9.4 MG/DL (8.5-10.1) Phosphorus Level 2.8 MG/DL (2.5-4.9) Albumin 3.2 G/DL (3.4-5.0) L White Blood Count 14.4 K/UL (4.8-10.8) H Red Blood Count 4.66 M/UL (4.20-5.40) Hemoglobin 13.5 G/DL (12.0-16.0) Hematocrit 40.5 % (37.0-47.0) Mean Corpuscular Volume 87 FL (80-99) Mean Corpuscular Hemoglobin 29.0 PG (27.0-31.0) Mean Corpuscular Hemoglobin Concent 33.4 G/DL (32.0-36.0) Red Cell Distribution Width 11.7 % (11.6-14.8) Platelet Count 273 K/UL (150-450) Mean Platelet Volume 6.0 FL (6.5-10.1) L Neutrophils (%) (Auto) 83.9 % (45.0-75.0) H Lymphocytes (%) (Auto) 10.6 % (20.0-45.0) L Monocytes (%) (Auto) 4.3 % (1.0-10.0) Eosinophils (%) (Auto) 0.6 % (0.0-3.0) Basophils (%) (Auto) 0.6 % (0.0-2.0) Height (Feet): 5 Height (Inches): 3.00 Weight (Pounds): 270 Medications Current Medications Medications (Trade) Dose Ordered Sig/Zakiya Route PRN Reason Start Time Stop Time Status Last Admin Dose Admin Acetaminophen (Tylenol) 650 mg Q4H PRN ORAL FEVER 08/26/17 16:15 09/25/17 16:14 Albuterol/ Ipratropium (Albuterol/ Ipratropium) 3 ml EVERY 4 HOURS PRN HHN Shortness of Breath 08/26/17 16:15 08/31/17 16:14 Amlodipine Besylate (Norvasc) 5 mg DAILY ORAL 08/27/17 09:00 09/26/17 08:59 08/27/17 09:51 Atorvastatin Calcium (Lipitor) 20 mg BEDTIME ORAL 08/26/17 21:00 09/25/17 20:59 08/26/17 21:09 Dextrose (Dextrose 50%) 25 ml STAT PRN IV Hypoglycemia 08/26/17 16:15 09/25/17 16:14 Dextrose (Dextrose 50%) 50 ml STAT PRN IV Hypoglycemia 08/26/17 16:15 09/25/17 16:14 Heparin Sodium (Porcine) (Heparin 5000 units/ml) 5,000 units EVERY 12 HOURS SUBQ 08/26/17 21:00 09/25/17 20:59 08/27/17 10:01 Insulin Aspart (NovoLOG) BEFORE MEALS AND HS SUBQ 08/26/17 16:30 09/25/17 16:29 08/27/17 12:22 Levofloxacin 150 ml @ 100 mls/hr Q24H IVPB 08/27/17 15:00 09/03/17 14:59 08/27/17 15:04 Lorazepam (Ativan 2mg/ml 1ml) 2 mg EVERY 2 HOURS PRN IV For Anxiety 08/26/17 16:15 09/02/17 16:14 Losartan Potassium (Cozaar) 25 mg DAILY ORAL 08/27/17 09:00 09/26/17 08:59 08/27/17 09:51 Morphine Sulfate (Morphine Sulfate) 4 mg EVERY 4 HOURS PRN IVP Severe Pain (Pain Scale 7-10) 08/26/17 16:15 09/02/17 16:14 08/27/17 00:25 Ondansetron HCl (Zofran) 4 mg Q6H PRN IVP Nausea & Vomiting 08/26/17 16:15 09/25/17 16:14 Polyethylene Glycol (Miralax) 17 gm DAILYPRN PRN ORAL Constipation 08/26/17 16:15 09/25/17 16:14 Promethazine HCl/ Codeine (Phenergan with Codeine) 5 ml Q4H PRN ORAL For Cough 08/26/17 16:15 09/25/17 16:14 Sodium Chloride 1,000 ml @ 50 mls/hr Q20H IV 08/26/17 22:50 09/25/17 22:49 08/26/17 17:00 Tara Ramsey MD August 27, 2017 15:42
[2017-08-27 16:00] VITALS: BP 132/57
[2017-08-27] MEDS ORDERED: Tubing IV Secondary IV ONE (17:08)
--- NOTE | 2017-08-27 17:15 | Consultation ---
DATE OF CONSULTATION: 08/27/2017 INFECTIOUS DISEASE CONSULTATION CONSULTING PHYSICIAN: Vamsi Jauregui M.D. REFERRING PHYSICIAN: Cholo Gong D.O. REASON FOR CONSULTATION: Evaluation of the patient for pneumonia, COPD exacerbation, urinary tract infection, antibiotic management. HISTORY OF PRESENT ILLNESS: The patient is a 56-year-old female with multiple medical problems, who came to the hospital because of general weakness and not feeling well. The patient was recently diagnosed with urinary tract infection and the patient was still on nitrofurantoin. The patient has significant dysuria that overall has improved. The patient also has been complaining of some cough. She is an ex-smoker. Infectious disease consultation was requested for further evaluation of the patient and antibiotic management. PAST MEDICAL HISTORY: 1. Hypertension. 2. Diabetes. 3. Hyperlipidemia. 4. History of CVA. 5. History of COPD. The patient is a smoker. ALLERGIES: No known drug allergies. MEDICATION: Cefepime and vancomycin. SOCIAL HISTORY: Significant for smoking. No history of alcohol or drug abuse. FAMILY HISTORY: Not contributing. REVIEW OF SYSTEMS: HEENT: No recent change in vision or hearing. PULMONARY: As mentioned above. CARDIOVASCULAR: No chest pain or palpitation. GASTROINTESTINAL/ABDOMEN: No nausea, vomiting, or diarrhea. GENITOURINARY: As mentioned above . EXTREMITIES: The patient had lower extremity pain. NEUROLOGIC: As mentioned above. PHYSICAL EXAMINATION: VITAL SIGNS: Temperature 97.2, pulse 86, respiratory rate 18, and blood pressure 121/72. HEENT: No pale conjunctivae. No icterus. NECK: No lymphadenopathy. CHEST: Coarse breathing sounds. HEART: S1, S2. ABDOMEN: Soft. EXTREMITIES: No cyanosis at this time. NEUROLOGIC: Awake and alert. LABORATORY AND DIAGNOSTIC DATA: White blood cells at the time of admission 12 and today it is 14, hemoglobin 13, platelets 273,000. UA, 5 to 10 white blood cells. BUN 15, creatinine 0.7. ALT, AST, and alkaline phosphatase unremarkable. Chest x-ray, increased interstitial markings, pulmonary venous congestion. Sputum culture is pending. ASSESSMENT: 1. The patient is a 56-year-old female with multiple medical problems as above, who has: 2. COPD exacerbation/bronchitis. 3. Possible urinary tract infection. 4. Leukocytosis. 5. Rule out bacteremia. PLAN: 1. We will change antibiotics to Levaquin. 2. Monitor cultures (blood, urine, and sputum). 3. Monitor chest x-ray. 4. Monitor CBC. 5. Monitor BMP. 6. Based on the patient's clinical course and labs, we will do further recommendation. Thank you, Dr. Cholo Gong, for allowing me to participate in the care of this patient. We will follow this patient with you during this hospitalization. Vamsi Jauregui M.D. DR: Mook JOB#: [id number] CC:
--- NOTE | 2017-08-27 18:53 | Cardiology Report ---
APPROVED REPORT EKG Measurement Heart [id number] Sinus tachycardia Biatrial enlargement Right bundle branch block Abnormal ECG
--- NOTE | 2017-08-27 19:30 | History and Physical Report ---
DATE OF ADMISSION: 08/26/2017 APPROXIMATE TIME SEEN: At 2:00 p.m. CONSULTANTS: 1. Dr. Ramsey. 2. Dr. Jauregui. CHIEF COMPLAINT: Shortness of breath, pneumonia, exacerbation of COPD. BRIEF HISTORY: This is a 56-year-old female from home, presents to [facility] with history of increased shortness of breath x2 days and diagnosed with pneumonia, pneumonitis, exacerbation of COPD, and admitted to medical floor for further treatment. Currently, calm in bed, slight shortness of breath, no complaint otherwise. REVIEW OF SYSTEMS: No chest pain. Slight shortness of breath. No nausea, vomiting, or diarrhea. PAST MEDICAL HISTORY: Hypertension, CVA, diabetes, obesity, neuropathy. PAST SURGICAL HISTORY: Hysterectomy. ALLERGIES: Denies. MEDICATIONS: Include levofloxacin, Norvasc, Cozaar, heparin, insulin aspart, promethazine with codeine, lorazepam, Zofran, morphine, Tylenol, albuterol. SOCIAL HISTORY: Positive smoke, 1 pack per day for 8 years. No alcohol. No intravenous drug abuse. FAMILY HISTORY: Noncontributory. PHYSICAL EXAMINATION: GENERAL: Calm in bed, oriented x3, in no acute distress. VITAL SIGNS: Temperature is 97 degrees, pulse 79, respirations 19, and blood pressure 121/72. CARDIOVASCULAR: No murmur. LUNGS: Poor exchange. ABDOMEN: Bowel sounds positive. Nontender. Nondistended. EXTREMITIES: Show no cyanosis, clubbing, or edema. NEUROLOGIC: The patient moves all extremities, slightly weak. LABORATORY AND DIAGNOSTIC DATA: Labs at this time show white count 14, otherwise CBC is normal. BMP shows glucose 229, otherwise BMP is normal. INR is 0.9. PTT is 26. Urinalysis shows 3+ leukocyte esterase. ASSESSMENT: Pneumonia, UTI, sepsis, exacerbation of COPD, pneumonitis, hypertension, CVA, diabetes, obesity, and neuropathy. PLAN: O2, pulmonary treatment, antibiotic per Infectious Disease, OT, PT, dietary evaluation, CBC and BMP in the morning, blood pressure and blood sugar control, resume home medications. We will continue to follow this patient medically. Cholo Gong D.O. DR: [place] JOB#: [id number] CC:
[2017-08-27 20:00] VITALS: BP 137/75
[2017-08-28 04:00] VITALS: BP 140/65
[2017-08-28 04:51] LABS: BASOPHILS % (AUTO) 0.7 % (0.0-2.0); HEMATOCRIT 39.4 % (37.0-47.0); HEMOGLOBIN 13.1 G/DL (12.0-16.0); MEAN CORPUSCULAR VOLUME 87 FL (80-99); MONOCYTES % (AUTO) 5.7 % (1.0-10.0); NEUTROPHILS % (AUTO) 59.7 % (45.0-75.0); PLATELET COUNT 290 K/UL (150-450); RED BLOOD COUNT 4.53 M/UL (4.20-5.40); RED CELL DISTRIBUTION WIDTH 11.8 % (11.6-14.8); WHITE BLOOD COUNT 13.9 K/UL (4.8-10.8)
[2017-08-28 05:10] LABS: ANION GAP 8 mmol/L (5-15); BLOOD UREA NITROGEN 17 mg/dL (7-18); CALCIUM 8.7 MG/DL (8.5-10.1); CARBON DIOXIDE 24 MMOL/L (21-32); CHLORIDE 108 MMOL/L (98-107); CREATININE 0.8 MG/DL (0.55-1.30); POTASSIUM 3.9 MMOL/L (3.5-5.1); SODIUM 139 MMOL/L (136-145)
[2017-08-28] MEDS: NovoLOG Insulin Flexpen SUBQ SCH ×2 (05:46→11:53)
[2017-08-28 08:09] VITALS: BP 134/72
[2017-08-28] MEDS: Losartan 25mg tab ORAL SCH (08:21)
[2017-08-28] MEDS: Heparin 5000 units/ml inj SUBQ SCH (08:23)
--- NOTE | 2017-08-28 11:26 | Infectious Diseases Prog Note ---
Assessment/Plan Assessment/Plan ASSESSMENT: The patient is a 56-year-old female with COPD exacerbation/bronchitis Chest x-ray: increased interstitial markings,pulmonary venous congestion. Possible urinary tract infection. Leukocytosis, improving Rule out bacteremia Hypertension. Diabetes. Hyperlipidemia. History of CVA. History of COPD. The patient is a smoker. PLAN: cont pt on Levaquin d# 2 / 5 Monitor cultures (blood, urine, and sputum). Monitor chest x-ray. Monitor CBC. Monitor BMP. Subjective Allergies: Coded Allergies: No Known Allergies (Unverified , 11/23/12) Subjective Afebrile no new complain Objective Vital Signs Last 24 Hour Vital Signs Date Time Temp Pulse Resp B/P (MAP) Pulse Ox O2 Delivery O2 Flow Rate FiO2 08/28/17 08:21 134/72 08/28/17 08:21 80 134/72 08/28/17 08:09 Room Air 08/28/17 08:09 97.9 80 18 134/72 95 97.9 08/28/17 07:55 80 20 Room Air 21 08/28/17 04:00 98.1 78 18 140/65 96 Room Air 98.1 08/27/17 22:55 97.9 08/27/17 22:25 97.9 08/27/17 20:46 90 20 Room Air 21 08/27/17 20:00 97.3 77 18 137/75 94 Room Air 97.3 08/27/17 16:00 Room Air 08/27/17 16:00 97.9 76 19 132/57 97 97.9 08/27/17 12:00 Room Air 08/27/17 12:00 97.5 79 19 121/72 97 97.5 Height (Feet): 5 Height (Inches): 3.00 Weight (Pounds): 270 HEENT: mucous membranes moist Respiratory/Chest: normal breath sounds Cardiovascular: regular rhythm Abdomen: no organomegaly Laboratory Tests Test 08/28/17 04:20 White Blood Count 13.9 K/UL (4.8-10.8) H Red Blood Count 4.53 M/UL (4.20-5.40) Hemoglobin 13.1 G/DL (12.0-16.0) Hematocrit 39.4 % (37.0-47.0) Mean Corpuscular Volume 87 FL (80-99) Mean Corpuscular Hemoglobin 29.0 PG (27.0-31.0) Mean Corpuscular Hemoglobin Concent 33.4 G/DL (32.0-36.0) Red Cell Distribution Width 11.8 % (11.6-14.8) Platelet Count 290 K/UL (150-450) Mean Platelet Volume 6.3 FL (6.5-10.1) L Neutrophils (%) (Auto) 59.7 % (45.0-75.0) Lymphocytes (%) (Auto) 28.0 % (20.0-45.0) Monocytes (%) (Auto) 5.7 % (1.0-10.0) Eosinophils (%) (Auto) 6.0 % (0.0-3.0) H Basophils (%) (Auto) 0.7 % (0.0-2.0) Sodium Level 139 MMOL/L (136-145) Potassium Level 3.9 MMOL/L (3.5-5.1) Chloride Level 108 MMOL/L (98-107) H Carbon Dioxide Level 24 MMOL/L (21-32) Anion Gap 8 mmol/L (5-15) Blood Urea Nitrogen 17 mg/dL (7-18) Creatinine 0.8 MG/DL (0.55-1.30) Estimat Glomerular Filtration Rate > 60 mL/min (>60) Glucose Level 178 MG/DL (74-106) H Calcium Level 8.7 MG/DL (8.5-10.1) Vancomycin Level Trough 3.7 ug/mL (5.0-12.0) L Current Medications Medications (Trade) Dose Ordered Sig/Zakiya Route PRN Reason Start Time Stop Time Status Last Admin Dose Admin Acetaminophen (Tylenol) 650 mg Q4H PRN ORAL FEVER 08/26/17 16:15 09/25/17 16:14 Albuterol/ Ipratropium (Albuterol/ Ipratropium) 3 ml EVERY 4 HOURS PRN HHN Shortness of Breath 08/26/17 16:15 08/31/17 16:14 Amlodipine Besylate (Norvasc) 5 mg DAILY ORAL 08/27/17 09:00 09/26/17 08:59 08/28/17 08:21 Atorvastatin Calcium (Lipitor) 20 mg BEDTIME ORAL 08/26/17 21:00 09/25/17 20:59 08/27/17 20:32 Dextrose (Dextrose 50%) 25 ml STAT PRN IV Hypoglycemia 08/26/17 16:15 09/25/17 16:14 Dextrose (Dextrose 50%) 50 ml STAT PRN IV Hypoglycemia 08/26/17 16:15 09/25/17 16:14 Heparin Sodium (Porcine) (Heparin 5000 units/ml) 5,000 units EVERY 12 HOURS SUBQ 08/26/17 21:00 09/25/17 20:59 08/28/17 08:23 Insulin Aspart (NovoLOG) BEFORE MEALS AND HS SUBQ 08/26/17 16:30 09/25/17 16:29 08/28/17 05:46 Levofloxacin 150 ml @ 100 mls/hr Q24H IVPB 08/27/17 15:00 09/03/17 14:59 08/27/17 15:04 Lorazepam (Ativan 2mg/ml 1ml) 2 mg EVERY 2 HOURS PRN IV For Anxiety 08/26/17 16:15 09/02/17 16:14 Losartan Potassium (Cozaar) 25 mg DAILY ORAL 08/27/17 09:00 09/26/17 08:59 08/28/17 08:21 Morphine Sulfate (Morphine Sulfate) 4 mg EVERY 4 HOURS PRN IVP Severe Pain (Pain Scale 7-10) 08/26/17 16:15 09/02/17 16:14 08/27/17 22:25 Nateglinide (Starlix) 120 mg TIAC ORAL 08/28/17 11:30 09/27/17 11:29 Ondansetron HCl (Zofran) 4 mg Q6H PRN IVP Nausea & Vomiting 08/26/17 16:15 09/25/17 16:14 Polyethylene Glycol (Miralax) 17 gm DAILYPRN PRN ORAL Constipation 08/26/17 16:15 09/25/17 16:14 Promethazine HCl/ Codeine (Phenergan with Codeine) 5 ml Q4H PRN ORAL For Cough 08/26/17 16:15 09/25/17 16:14 Sodium Chloride 1,000 ml @ 50 mls/hr Q20H IV 08/26/17 22:50 09/25/17 22:49 08/27/17 19:16 Vamsi Jauregui MD August 28, 2017 11:26
[2017-08-28 12:24] VITALS: BP 116/76
--- NOTE | 2017-08-28 14:31 | Pulmonology Progress Note ---
Subjective Allergies: Coded Allergies: No Known Allergies (Unverified , 11/23/12) Objective Last 24 Hour Vital Signs Date Time Temp Pulse Resp B/P (MAP) Pulse Ox O2 Delivery O2 Flow Rate FiO2 08/28/17 12:24 97.8 64 18 116/76 98 97.8 08/28/17 08:21 134/72 08/28/17 08:21 80 134/72 08/28/17 08:09 Room Air 08/28/17 08:09 97.9 80 18 134/72 95 97.9 08/28/17 07:55 80 20 Room Air 21 08/28/17 04:00 98.1 78 18 140/65 96 Room Air 98.1 08/27/17 22:55 97.9 08/27/17 22:25 97.9 08/27/17 20:46 90 20 Room Air 21 08/27/17 20:00 97.3 77 18 137/75 94 Room Air 97.3 08/27/17 16:00 Room Air 08/27/17 16:00 97.9 76 19 132/57 97 97.9 Intake and Output 08/27/17 08/28/17 19:00 07:00 Intake Total 1300 ml 1000 ml Balance 1300 ml 1000 ml Intake Oral 800 ml 400 ml IV Total 500 ml 600 ml # Voids 2 3 Laboratory Tests 08/28/17 04:20: White Blood Count 13.9H, Red Blood Count 4.53, Hemoglobin 13.1, Hematocrit 39.4 , Mean Corpuscular Volume 87, Mean Corpuscular Hemoglobin 29.0, Mean Corpuscular Hemoglobin Concent 33.4, Red Cell Distribution Width 11.8, Platelet Count 290, Mean Platelet Volume 6.3L, Neutrophils (%) (Auto) 59.7, Lymphocytes ( %) (Auto) 28.0, Monocytes (%) (Auto) 5.7, Eosinophils (%) (Auto) 6.0H, Basophils (%) (Auto) 0.7, Sodium Level 139, Potassium Level 3.9, Chloride Level 108H, Carbon Dioxide Level 24, Anion Gap 8, Blood Urea Nitrogen 17, Creatinine 0.8, Estimat Glomerular Filtration Rate > 60, Glucose Level 178H, Calcium Level 8.7, Vancomycin Level Trough 3.7L Current Medications Medications (Trade) Dose Ordered Sig/Zakiya Route PRN Reason Start Time Stop Time Status Last Admin Dose Admin Acetaminophen (Tylenol) 650 mg Q4H PRN ORAL FEVER 08/26/17 16:15 09/25/17 16:14 Albuterol/ Ipratropium (Albuterol/ Ipratropium) 3 ml EVERY 4 HOURS PRN HHN Shortness of Breath 08/26/17 16:15 08/31/17 16:14 Amlodipine Besylate (Norvasc) 5 mg DAILY ORAL 08/27/17 09:00 09/26/17 08:59 08/28/17 08:21 Atorvastatin Calcium (Lipitor) 20 mg BEDTIME ORAL 08/26/17 21:00 09/25/17 20:59 08/27/17 20:32 Dextrose (Dextrose 50%) 25 ml STAT PRN IV Hypoglycemia 08/26/17 16:15 09/25/17 16:14 Dextrose (Dextrose 50%) 50 ml STAT PRN IV Hypoglycemia 08/26/17 16:15 09/25/17 16:14 Heparin Sodium (Porcine) (Heparin 5000 units/ml) 5,000 units EVERY 12 HOURS SUBQ 08/26/17 21:00 09/25/17 20:59 08/28/17 08:23 Insulin Aspart (NovoLOG) BEFORE MEALS AND HS SUBQ 08/26/17 16:30 09/25/17 16:29 08/28/17 11:53 Levofloxacin 150 ml @ 100 mls/hr Q24H IVPB 08/27/17 15:00 09/03/17 14:59 08/27/17 15:04 Lorazepam (Ativan 2mg/ml 1ml) 2 mg EVERY 2 HOURS PRN IV For Anxiety 08/26/17 16:15 09/02/17 16:14 Losartan Potassium (Cozaar) 25 mg DAILY ORAL 08/27/17 09:00 09/26/17 08:59 08/28/17 08:21 Morphine Sulfate (Morphine Sulfate) 4 mg EVERY 4 HOURS PRN IVP Severe Pain (Pain Scale 7-10) 08/26/17 16:15 09/02/17 16:14 08/27/17 22:25 Nateglinide (Starlix) 120 mg TIAC ORAL 08/28/17 11:30 09/27/17 11:29 08/28/17 11:58 Ondansetron HCl (Zofran) 4 mg Q6H PRN IVP Nausea & Vomiting 08/26/17 16:15 09/25/17 16:14 Polyethylene Glycol (Miralax) 17 gm DAILYPRN PRN ORAL Constipation 08/26/17 16:15 09/25/17 16:14 Promethazine HCl/ Codeine (Phenergan with Codeine) 5 ml Q4H PRN ORAL For Cough 08/26/17 16:15 09/25/17 16:14 Sodium Chloride 1,000 ml @ 50 mls/hr Q20H IV 08/26/17 22:50 09/25/17 22:49 08/27/17 19:16 Tara Ramsey MD August 28, 2017 14:31
--- NOTE | 2017-08-28 15:01 | General Progress Note ---
Assessment/Plan Problem List: (1) tobacco abuse (2) UTI (urinary tract infection) ICD Codes: N39.0 - Urinary tract infection, site not specified SNOMED: 61531835 Qualifiers: Qualified Codes: N30.00 - Acute cystitis without hematuria (3) Pneumonitis ICD Codes: J18.9 - Pneumonia, unspecified organism SNOMED: 434335787 (4) COPD exacerbation ICD Codes: J44.1 - Chronic obstructive pulmonary disease with (acute) exacerbation SNOMED: 656937072 Status: unchanged Assessment/Plan oe pulm tx abx cbc bmp am dc plan Subjective Constitutional: Reports: weakness Allergies: Coded Allergies: No Known Allergies (Unverified , 11/23/12) All Systems: reviewed and negative except above Subjective sl sob Objective Last 24 Hour Vital Signs Date Time Temp Pulse Resp B/P (MAP) Pulse Ox O2 Delivery O2 Flow Rate FiO2 08/28/17 12:24 97.8 64 18 116/76 98 97.8 08/28/17 08:21 134/72 08/28/17 08:21 80 134/72 08/28/17 08:09 Room Air 08/28/17 08:09 97.9 80 18 134/72 95 97.9 08/28/17 07:55 80 20 Room Air 21 08/28/17 04:00 98.1 78 18 140/65 96 Room Air 98.1 08/27/17 22:55 97.9 08/27/17 22:25 97.9 08/27/17 20:46 90 20 Room Air 21 08/27/17 20:00 97.3 77 18 137/75 94 Room Air 97.3 08/27/17 16:00 Room Air 08/27/17 16:00 97.9 76 19 132/57 97 97.9 Intake and Output 08/27/17 08/28/17 19:00 07:00 Intake Total 1300 ml 1000 ml Balance 1300 ml 1000 ml Intake Oral 800 ml 400 ml IV Total 500 ml 600 ml # Voids 2 3 Laboratory Tests 08/28/17 04:20: White Blood Count 13.9H, Red Blood Count 4.53, Hemoglobin 13.1, Hematocrit 39.4 , Mean Corpuscular Volume 87, Mean Corpuscular Hemoglobin 29.0, Mean Corpuscular Hemoglobin Concent 33.4, Red Cell Distribution Width 11.8, Platelet Count 290, Mean Platelet Volume 6.3L, Neutrophils (%) (Auto) 59.7, Lymphocytes ( %) (Auto) 28.0, Monocytes (%) (Auto) 5.7, Eosinophils (%) (Auto) 6.0H, Basophils (%) (Auto) 0.7, Sodium Level 139, Potassium Level 3.9, Chloride Level 108H, Carbon Dioxide Level 24, Anion Gap 8, Blood Urea Nitrogen 17, Creatinine 0.8, Estimat Glomerular Filtration Rate > 60, Glucose Level 178H, Calcium Level 8.7, Vancomycin Level Trough 3.7L Height (Feet): 5 Height (Inches): 3.00 Weight (Pounds): 270 General Appearance: alert EENT: normal ENT inspection Neck: normal alignment Cardiovascular: normal peripheral pulses, normal rate, regular rhythm Respiratory/Chest: chest wall non-tender, decreased breath sounds Abdomen: normal bowel sounds, non tender, soft Extremities: normal inspection Edema: no edema noted Arm (L), no edema noted Arm (R), no edema noted Leg (L), no edema noted Leg (R), no edema noted Pedal (L), no edema noted Pedal (R), no edema noted Generalized Neurologic: motor weakness Skin: normal pigmentation, warm/dry Cholo Gong DO August 28, 2017 15:01
[2017-08-28] MEDS ORDERED: LEVAQUIN500 MG ORAL (15:26)
[2017-08-28 15:44] VITALS: BP 117/60
--- NOTE | 2017-08-28 16:45 | Consultation ---
DATE OF CONSULTATION: 08/28/2017 ENDOCRINOLOGIC CONSULTATION CONSULTING PHYSICIAN: Pk Love M.D. ATTENDING PHYSICIAN: Cholo Gong D.O. REASON FOR CONSULTATION: Diabetes HISTORY OF PRESENT ILLNESS: The patient is a 56-year-old female with multiple medical problems, diabetes, hypertension, dyslipidemia history of CVA, who came to the hospital with generalized weakness and not feeling well. The patient had a recent urinary tract infection and the patient was started on nitrofurantoin. The patient has been complaining of some cough. She is an ex-smoker and I came in for evaluation of COPD exacerbation and possible pneumonia. Diabetes consult was obtained for management of elevated glucose. PAST MEDICAL HISTORY: 1. Hypertension. 2. Diabetes. 3. Hyperlipidemia. 4. CVA. 5. COPD. ALLERGIES: None. MEDICATIONS: Medications reviewed and reconciled. SOCIAL HISTORY: The patient is a smoker. No alcohol or drug use. FAMILY HISTORY: Diabetes. REVIEW OF SYSTEMS: A 12-point review of system was performed. The pertinent positives and negatives are as mentioned in the history of present illness. PHYSICAL EXAMINATION: VITAL SIGNS: Blood pressure 121/72, pulse 72, temperature 98.3, respiratory rate 18. HEENT: Pupils are equal and reactive to light. Sclerae are anicteric. NECK: No JVD. HEART: Regular rate and rhythm. LUNGS: Coarse breath sounds. ABDOMEN: Positive bowel sounds. Soft. EXTREMITIES: No clubbing. No cyanosis. Positive for edema. LABORATORY DATA: Lactic acid 2.4. Sodium 139, potassium 3.9, chloride 108, bicarb 24, BUN 17, and creatinine 0.8. DIAGNOSES: 1. Chronic obstructive pulmonary disease exacerbation. 2. Diabetes out of control. 3. Pneumonia. PLAN: To keep off of metformin since the patient's lactic acid was positive. Continue NovoLog sliding scale before meals and at bedtime. Add Starlix 120 mg before each meal. Further adjustment according to blood glucose values. Thank you, Dr. Gong, for the courtesy of this consultation. Pk Love M.D. DR: AICHA/DAWIT JOB#: [id number] CC: KAREN
--- NOTE | 2017-08-30 09:58 | Discharge Summary ---
Discharge Summary Hospital Course Date of Admission August 26, 2017 at 13:30 Date of Discharge August 28, 2017 at 17:20 Admitting Diagnosis COPD exacerbation HPI Rosa Guevara is a 56 year old female who was admitted on August 26, 2017 at 13: 30 for Copd Exacerbation Hospital Course [id number] Discharge Discharge Disposition Patient was discharged to Home (01) Doris Gross NP August 30, 2017 09:58
--- NOTE | 2017-08-31 02:30 | Discharge Summary 2 SIG ---
DATE OF ADMISSION: 08/26/2017 DATE OF DISCHARGE: 08/28/2017 CONSULTANTS: 1. Vamsi Jauregui M.D. 2. Tara Ramsey M.D. 3. Pk Love M.D. BRIEF HOSPITAL COURSE: The patient is a 56-year-old female from home, presented to [facility] for increased shortness of breath for two days. She has medical history significant for hypertension, CVA, diabetes, obesity, and neuropathy. On evaluation at ED, she was noted to have leukocytosis, WBC was 12.6. She had a chest x-ray that showed increased markings consistent with pneumonitis with diffuse pulmonary infection. She was given Solu-Medrol and breathing treatments. She was hypoxic, 85% on room air and was given O2 supplementation. She was given IV hydration and was started on antibiotics. Lactic acid was 2.4. EKG done showed sinus tachycardia with no acute changes. She was then admitted for pneumonia. She was seen by after school teacher and Infectious Disease specialist. She was recently diagnosed with a urinary infection and was still taking nitrofurantoin. She had significant dysuria that overall has improved. Antibiotic was switched to Levaquin. She was continued on her antihypertensives, Cozaar and amlodipine. She was continued on Lipitor. She had elevated blood glucose and was seen by Dr. Love. She was taken off metformin due to lactic acid elevation. She was given Starlix 120 mg before meals. Blood culture did not isolate any growth. Urine culture did not isolate any growth. She was eventually cleared for discharge home with home health. FINAL DIAGNOSES: 1. Pneumonitis. 2. Acute chronic obstructive pulmonary disease exacerbation. 3. Recent urinary tract infection. 4. Tobacco abuse. 5. Diabetes mellitus, out of control. 6. Hyperlipidemia. 7. Hypertension. 8. Old cerebrovascular accident. DISPOSITION: The patient was discharged home with home health. DISCHARGE MEDICATIONS: Refer to medication list. Continue with Levaquin 500 mg daily for three days. DISCHARGE INSTRUCTIONS: Follow up in a week. Cholo Gong D.O. I have been assigned to dictate discharge summary on this account and I was not involved in the patient's management. Doris Gross N.P. DR: ALICE JOB#: [id number] CC: KAREN
== END 2017-08-28 17:20 | disposition home health service (06) | DRG 190 ==
LOC: EMR 12:07 → EDBEDREQ 13:03 → 4W 13:30 → EDBEDREQ 13:57
DX: J44.0 Chronic obstructive pulmonary disease with (acute) lower respiratory infection (principal); J18.9 Pneumonia, unspecified organism; N39.0 Urinary tract infection, site not specified; J44.1 Chronic obstructive pulmonary disease with (acute) exacerbation; E78.5 Hyperlipidemia, unspecified; Z86.73 Personal history of transient ischemic attack (TIA), and cerebral infarction without residual deficits; F17.200 Nicotine dependence, unspecified, uncomplicated; E11.65 Type 2 diabetes mellitus with hyperglycemia; I10 Essential (primary) hypertension
CPT/HCPCS: 36415; 71045; 80048; 80053; 80069; 80202; 81003; 82550; 82962; 83605; 83880; 84484; 85025; 85610; 85730; 87040; 87086; 93005; 94640; 94664; 99285; J1815; J2405

== ENCOUNTER 2017-12-08 19:40 | Inpatient (IN) | payer MEDICARE, OTHER ==
[~2017-12-08] VITALS: Ht 162.6 cm; Wt 96.6 kg
[~2017-12-08 19:40] MED LIST changes: +AMLODIPINE BESY10 MG ORAL; +AMLODIPINE BESYL5 MG ORAL; +ATORVASTATIN CA20 MG ORAL; +DOCUSATE SODIU100 MG ORAL; +IMODIUM2 MG ORAL; +LEVAQUIN500 MG ORAL; +MACROBID100 MG ORAL; +METFORMIN HCL850 M1 ORAL; +OMEPRAZOLE20 M2 ORAL
[2017-12-08 20:10] VITALS: BP 101/68
[2017-12-08] MEDS ORDERED: Albuterol ud Inhalation HHN ONE (20:30)
[2017-12-08] MEDS ORDERED: Ipratropium 0.02% Inh Soln 2.5ml UD HHN ONE (20:30)
[2017-12-08] MEDS ORDERED: Isovue-370 150ml vial INJ PRN (20:30)
[2017-12-08 20:59] LABS: APPEARANCE,URINE CLEAR; BILIRUBIN, URINE NEGATIVE (NEGATIVE); COLOR,URINE PALE YELLOW; GLUCOSE, URINE (UA) NEGATIVE (NEGATIVE); KETONES,URINE NEGATIVE (NEGATIVE); LEUKOCYTE ESTERASE ,URINE 2+ (NEGATIVE); NITRITE,URINE NEGATIVE (NEGATIVE); PH,URINE 5 (4.5-8.0); PROTEIN,URINE NEGATIVE (NEGATIVE); UROBILINOGEN,URINE NORMAL MG/DL (0.0-1.0)
[2017-12-08 21:07] LABS: HEMATOCRIT 46.7 % (37.0-47.0); HEMOGLOBIN 15.4 G/DL (12.0-16.0); MEAN CORPUSCULAR VOLUME 88 FL (80-99); PLATELET COUNT 345 K/UL (150-450); RED BLOOD COUNT 5.32 M/UL (4.20-5.40); RED CELL DISTRIBUTION WIDTH 11.5 % (11.6-14.8)
[2017-12-08 21:12] LABS: WHITE BLOOD COUNT 23.6 K/UL (4.8-10.8)
[2017-12-08] MEDS ORDERED: Piperacillin/Tazobactam 3.375 GM in NS 110 ML IVPB ONE (21:15)
[2017-12-08] MEDS ORDERED: Vancomycin 1.5gm/D5W 250ml 250 ML IVPB ONE (21:15)
[2017-12-08 21:23] LABS: ANION GAP 11 mmol/L (5-15); BLOOD UREA NITROGEN 11 mg/dL (7-18); CALCIUM 8.7 MG/DL (8.5-10.1); CARBON DIOXIDE 26 MMOL/L (21-32); CHLORIDE 103 MMOL/L (98-107); CREATININE 0.9 MG/DL (0.55-1.30); POTASSIUM 3.9 MMOL/L (3.5-5.1); SODIUM 139 MMOL/L (136-145)
[2017-12-08 21:33] LABS: ALANINE AMINOTRANSFERASE 22 U/L (12-78); ALBUMIN 3.4 G/DL (3.4-5.0); ALBUMIN/GLOBULIN RATIO 0.8 (1.0-2.7); ALKALINE PHOSPHATASE 131 U/L (46-116); ASPARTATE AMINO TRANSFERASE 18 U/L (15-37); BILIRUBIN,TOTAL 0.6 MG/DL (0.2-1.0); CREATINE KINASE 161 U/L (26-308)
--- NOTE | 2017-12-08 22:11 | Diagnostic Imaging Report ---
EXAM: XR Chest, 1 View CLINICAL HISTORY: ABD PAIN TECHNIQUE: Frontal view of the chest. COMPARISON: Chest x-ray dated 11/07/2016. FINDINGS: Lungs: Perihilar and infrahilar opacities which may represent early portal vasculature congestion versus an infectious process. Pleural space: Unremarkable. No pneumothorax. Heart: Unremarkable. No cardiomegaly. Mediastinum: Unremarkable. Bones/joints: Unremarkable. IMPRESSION: Perihilar and infrahilar opacities which may represent early portal vasculature congestion versus an infectious process.
--- NOTE | 2017-12-08 22:29 | Emergency Room Report ---
History of Present Illness General Chief Complaint: Abdominal Pain Source: Patient Present Illness HPI Patient presents with 2 days of worsening dyspnea, leg pain, swelling and abdominal pain. Denies prior clot. Has been immobile. Some pleuritic chest discomfort. No productive cough. ++ ROBERTSON and orthopnea. Not on home O2 or have breathing machine. Over the past few days she has had increased weakness. Some headache. Pain in abdomen is 8/10, constant, pressure and aching. No NVD. No dysuria. Recent discharge from hospital to return to work. Was admitted here August with these dx: 1. Pneumonitis. 2. Acute chronic obstructive pulmonary disease exacerbation. 3. Recent urinary tract infection. 4. Tobacco abuse. 5. Diabetes mellitus, out of control. 6. Hyperlipidemia. 7. Hypertension. 8. Old cerebrovascular accident. Allergies: Coded Allergies: No Known Allergies (Unverified , 11/23/12) Patient History Past Medical History: see triage record Past Surgical History: hysterectomy Social History: Reports: smoking Social History Narrative at home Reviewed Nursing Documentation: PMH: Agreed; PSxH: Agreed Nursing Documentation-PMH Hx Hypertension: Yes Hx Diabetes: Yes - since 2007 Hx Cancer: No Hx Gastrointestinal Problems: No Hx Cerebrovascular Accident: Yes Physical Exam Vital Signs Date Time Temp Pulse Resp B/P (MAP) Pulse Ox O2 Delivery O2 Flow Rate FiO2 12/08/17 19:57 100.8 116 18 101/68 81 Room Air 100.8 12/08/17 20:40 2.0 28 Sp02 EP Interpretation: reviewed, abnormal - hypoxic as interpreted by me General Appearance: well appearing, GCS 15, mild distress Head: normocephalic, atraumatic Eyes: bilateral eye normal inspection, bilateral eye PERRL ENT: moist mucus membranes Neck: supple Respiratory: lungs clear, decreased breath sounds Cardiovascular #1: regular rate, rhythm, edema - bilat - pitting Cardiovascular #2: 2+ radial (R) Gastrointestinal: normal inspection, normal bowel sounds, no mass, non- distended, no rebound, guarding - minimal, tenderness - diffusely, possibly more L sided, overweight Genitourinary: no CVA tenderness Musculoskeletal: back normal, gait/station normal, normal range of motion, swelling - bilateral LE - slight calf tenderness Neurologic: oriented x3, motor strength/tone normal, DTRs symmetric, sensory intact, speech normal, other - slightly slow in response Skin: warm/dry, other - venous disease Medical Decision Making Diagnostic Impression: Primary Impression: Sepsis Qualified Codes: A41.9 - Sepsis, unspecified organism Additional Impressions: Hypoxia Abdominal pain Qualified Codes: R10.84 - Generalized abdominal pain UTI (urinary tract infection) Qualified Codes: N39.0 - Urinary tract infection, site not specified Left lower lobe pulmonary infiltrate ER Course Patient presents with fever, dyspnea, chest pain, calf pain and abdominal pain. Differential is broad including sepsis, acute myocardial infarction, pulmonary embolus, pneumonia, diverticulitis amongst others. The patient is has abnormal vital signs and is significantly ill. She'll be treated with breathing treatments as initially and oxygen. She does not have oxygen at home usually. EKG will be obtained CT the abdomen and pelvis with oral IV contrast. In addition to that she's a CTA of the chest to exclude pulmonary embolus. Clinically this suspicion is high. EKG with sinus tachycardia right bundle-branch block. Left atrial enlargement with P pulmonale. Nonspecific ST-T wave changes. Chest x-ray no significant infiltrates or congestive heart failure. Labs significant for white count of 23 ,000. Initial lactate is negative. Urinalysis has pyuria. Venous BG with hypoxia. pH near normal. CO2 elevated (consider contraction alkalosis or chronic resp acidosis with compensation). Improved after breathing treatment and hydration. Suggested The patient is covered with broad-spectrum antibiotics and as the BNP is low at 30 mg/kg bolus is given and then hydration with [address] without PE. LLL infiltrate. Abdomen, no sig pathology. Antibiotics begun. Abdomen exam improved. Patient more alert after treatment. Complex patient needing SDU. Admit Dr. Gong SDU. Laboratory Tests Test 12/08/17 20:25 12/08/17 20:26 12/08/17 20:47 12/09/17 05:15 Urine Color Pale yellow Urine Appearance Clear Urine pH 5 (4.5-8.0) Urine Specific [place] 1.005 (1.005-1.035) Urine Protein Negative (NEGATIVE) Urine Glucose (UA) Negative (NEGATIVE) Urine Ketones Negative (NEGATIVE) Urine Blood Negative (NEGATIVE) Urine Nitrite Negative (NEGATIVE) Urine Bilirubin Negative (NEGATIVE) Urine Urobilinogen Normal MG/DL (0.0-1.0) Urine Leukocyte Esterase 2+ (NEGATIVE) H Urine RBC 0-2 /HPF (0 - 2) Urine WBC 15-20 /HPF (0 - 2) H Urine Squamous Epithelial Cells Moderate /LPF (NONE/OCC) H Urine Bacteria Few /HPF (NONE) Urine Opiates Screen Negative (NEGATIVE) Urine Barbiturates Screen Negative (NEGATIVE) Phencyclidine (PCP) Screen Negative (NEGATIVE) Urine Amphetamines Screen Negative (NEGATIVE) Urine Benzodiazepines Screen Negative (NEGATIVE) Urine Cocaine Screen Negative (NEGATIVE) Urine Marijuana (THC) Screen Negative (NEGATIVE) Arterial Blood pH 7.391 (7.350-7.450) Arterial Blood Partial Pressure CO2 40.2 mmHg (35.0-45.0) Arterial Blood Partial Pressure O2 42.7 mmHg (75.0-100.0) Arterial Blood HCO3 23.8 mmol/L (22.0-26.0) Arterial Blood Oxygen Saturation 77.5 % (92.0-98.0) L Arterial Blood Base Excess -1.0 Josh Test Positive White Blood Count 23.6 K/UL (4.8-10.8) *H 21.4 K/UL (4.8-10.8) H Red Blood Count 5.32 M/UL (4.20-5.40) 5.16 M/UL (4.20-5.40) Hemoglobin 15.4 G/DL (12.0-16.0) 14.7 G/DL (12.0-16.0) Hematocrit 46.7 % (37.0-47.0) 44.6 % (37.0-47.0) Mean Corpuscular Volume 88 FL (80-99) 86 FL (80-99) Mean Corpuscular Hemoglobin 29.0 PG (27.0-31.0) 28.4 PG (27.0-31.0) Mean Corpuscular Hemoglobin Concent 33.0 G/DL (32.0-36.0) 32.9 G/DL (32.0-36.0) Red Cell Distribution Width 11.5 % (11.6-14.8) L 11.7 % (11.6-14.8) Platelet Count 345 K/UL (150-450) 332 K/UL (150-450) Mean Platelet Volume 5.5 FL (6.5-10.1) L 5.6 FL (6.5-10.1) L Neutrophils (%) (Auto) % (45.0-75.0) % (45.0-75.0) Lymphocytes (%) (Auto) % (20.0-45.0) % (20.0-45.0) Monocytes (%) (Auto) % (1.0-10.0) % (1.0-10.0) Eosinophils (%) (Auto) % (0.0-3.0) % (0.0-3.0) Basophils (%) (Auto) % (0.0-2.0) % (0.0-2.0) Differential Total Cells Counted 100 Neutrophils % (Manual) 84 % (45-75) H Pending Lymphocytes % (Manual) 6 % (20-45) L Pending Monocytes % (Manual) 2 % (1-10) Eosinophils % (Manual) 2 % (0-3) Basophils % (Manual) 0 % (0-2) Band Neutrophils 6 % (0-8) Platelet Estimate Adequate Pending Platelet Morphology Normal Pending Red Blood Cell Morphology Normal Prothrombin Time 10.4 SEC (9.30-11.50) Prothrombin Time INR 1.0 (0.9-1.1) PTT 30 SEC (23-33) Sodium Level 139 MMOL/L (136-145) 141 MMOL/L (136-145) Potassium Level 3.9 MMOL/L (3.5-5.1) 3.9 MMOL/L (3.5-5.1) Chloride Level 103 MMOL/L (98-107) 107 MMOL/L (98-107) Carbon Dioxide Level 26 MMOL/L (21-32) 27 MMOL/L (21-32) Anion Gap 11 mmol/L (5-15) 8 mmol/L (5-15) Blood Urea Nitrogen 11 mg/dL (7-18) 7 mg/dL (7-18) Creatinine 0.9 MG/DL (0.55-1.30) 0.7 MG/DL (0.55-1.30) Estimate Glomerular Filtration Rate > 60 mL/min (>60) > 60 mL/min (>60) Glucose Level 136 MG/DL (74-106) H 122 MG/DL (74-106) H Lactic Acid Level 1.50 mmol/L (0.4-2.0) Calcium Level 8.7 MG/DL (8.5-10.1) 8.8 MG/DL (8.5-10.1) Total Bilirubin 0.6 MG/DL (0.2-1.0) Aspartate Amino Transferase (AST) 18 U/L (15-37) Alanine Aminotransferase (ALT) 22 U/L (12-78) Alkaline Phosphatase 131 U/L (46-116) H Total Creatine Kinase 161 U/L (26-308) Troponin I 0.016 ng/mL (0.000-0.056) Pro-B-Type Natriuretic Peptide 130 pg/mL (0-125) H Total Protein 7.9 G/DL (6.4-8.2) Albumin 3.4 G/DL (3.4-5.0) Globulin 4.5 g/dL Albumin/Globulin Ratio 0.8 (1.0-2.7) L Lipase 50 U/L (73-393) L EKG Diagnostic Results Rate: tachycardiac ST Segments: no acute changes Rhythm Strip Diag. Results EP Interpretation: yes Rhythm: no PVC's, no ectopy, other - ST Chest X-Ray Diagnostic Results Chest X-Ray Diagnostic Results : Chest X-Ray Ordered: Yes # of Views/Limited/Complete: 1 View Indication: Other EP Interpretation: Yes Interpretation: no consolidation, no effusion, no pneumothorax Impression: Other - increased gutiérrez Electronically Signed by: Electronically signed by Pancho Prescott MD CT/MRI/US Diagnostic Results CT/MRI/US Diagnostic Results #1: Imaging Test Ordered: CTA chest Impression no PE, infiltrative process L base CT/MRI/US Diagnostic Results #2: Imaging Test Ordered: abd pelvis Impression IMPRESSION: No acute findings. Laboratory Tests Test 12/08/17 20:25 12/08/17 20:26 12/08/17 20:47 12/09/17 05:15 Urine Color Pale yellow Urine Appearance Clear Urine pH 5 (4.5-8.0) Urine Specific [place]ance 1.005 (1.005-1.035) Urine Protein Negative (NEGATIVE) Urine Glucose (UA) Negative (NEGATIVE) Urine Ketones Negative (NEGATIVE) Urine Blood Negative (NEGATIVE) Urine Nitrite Negative (NEGATIVE) Urine Bilirubin Negative (NEGATIVE) Urine Urobilinogen Normal MG/DL (0.0-1.0) Urine Leukocyte Esterase 2+ (NEGATIVE) H Urine RBC 0-2 /HPF (0 - 2) Urine WBC 15-20 /HPF (0 - 2) H Urine Squamous Epithelial Cells Moderate /LPF (NONE/OCC) H Urine Bacteria Few /HPF (NONE) Urine Opiates Screen Negative (NEGATIVE) Urine Barbiturates Screen Negative (NEGATIVE) Phencyclidine (PCP) Screen Negative (NEGATIVE) Urine Amphetamines Screen Negative (NEGATIVE) Urine Benzodiazepines Screen Negative (NEGATIVE) Urine Cocaine Screen Negative (NEGATIVE) Urine Marijuana (THC) Screen Negative (NEGATIVE) Arterial Blood pH 7.391 (7.350-7.450) Arterial Blood Partial Pressure CO2 40.2 mmHg (35.0-45.0) Arterial Blood Partial Pressure O2 42.7 mmHg (75.0-100.0) Arterial Blood HCO3 23.8 mmol/L (22.0-26.0) Arterial Blood Oxygen Saturation 77.5 % (92.0-98.0) L Arterial Blood Base Excess -1.0 Josh Test Positive White Blood Count 23.6 K/UL (4.8-10.8) *H 21.4 K/UL (4.8-10.8) H Red Blood Count 5.32 M/UL (4.20-5.40) 5.16 M/UL (4.20-5.40) Hemoglobin 15.4 G/DL (12.0-16.0) 14.7 G/DL (12.0-16.0) Hematocrit 46.7 % (37.0-47.0) 44.6 % (37.0-47.0) Mean Corpuscular Volume 88 FL (80-99) 86 FL (80-99) Mean Corpuscular Hemoglobin 29.0 PG (27.0-31.0) 28.4 PG (27.0-31.0) Mean Corpuscular Hemoglobin Concent 33.0 G/DL (32.0-36.0) 32.9 G/DL (32.0-36.0) Red Cell Distribution Width 11.5 % (11.6-14.8) L 11.7 % (11.6-14.8) Platelet Count 345 K/UL (150-450) 332 K/UL (150-450) Mean Platelet Volume 5.5 FL (6.5-10.1) L 5.6 FL (6.5-10.1) L Neutrophils (%) (Auto) % (45.0-75.0) % (45.0-75.0) Lymphocytes (%) (Auto) % (20.0-45.0) % (20.0-45.0) Monocytes (%) (Auto) % (1.0-10.0) % (1.0-10.0) Eosinophils (%) (Auto) % (0.0-3.0) % (0.0-3.0) Basophils (%) (Auto) % (0.0-2.0) % (0.0-2.0) Differential Total Cells Counted 100 Neutrophils % (Manual) 84 % (45-75) H Pending Lymphocytes % (Manual) 6 % (20-45) L Pending Monocytes % (Manual) 2 % (1-10) Eosinophils % (Manual) 2 % (0-3) Basophils % (Manual) 0 % (0-2) Band Neutrophils 6 % (0-8) Platelet Estimate Adequate Pending Platelet Morphology Normal Pending Red Blood Cell Morphology Normal Prothrombin Time 10.4 SEC (9.30-11.50) Prothrombin Time INR 1.0 (0.9-1.1) PTT 30 SEC (23-33) Sodium Level 139 MMOL/L (136-145) 141 MMOL/L (136-145) Potassium Level 3.9 MMOL/L (3.5-5.1) 3.9 MMOL/L (3.5-5.1) Chloride Level 103 MMOL/L (98-107) 107 MMOL/L (98-107) Carbon Dioxide Level 26 MMOL/L (21-32) 27 MMOL/L (21-32) Anion Gap 11 mmol/L (5-15) 8 mmol/L (5-15) Blood Urea Nitrogen 11 mg/dL (7-18) 7 mg/dL (7-18) Creatinine 0.9 MG/DL (0.55-1.30) 0.7 MG/DL (0.55-1.30) Estimate Glomerular Filtration Rate > 60 mL/min (>60) > 60 mL/min (>60) Glucose Level 136 MG/DL (74-106) H 122 MG/DL (74-106) H Lactic Acid Level 1.50 mmol/L (0.4-2.0) Calcium Level 8.7 MG/DL (8.5-10.1) 8.8 MG/DL (8.5-10.1) Total Bilirubin 0.6 MG/DL (0.2-1.0) Aspartate Amino Transferase (AST) 18 U/L (15-37) Alanine Aminotransferase (ALT) 22 U/L (12-78) Alkaline Phosphatase 131 U/L (46-116) H Total Creatine Kinase 161 U/L (26-308) Troponin I 0.016 ng/mL (0.000-0.056) Pro-B-Type Natriuretic Peptide 130 pg/mL (0-125) H Total Protein 7.9 G/DL (6.4-8.2) Albumin 3.4 G/DL (3.4-5.0) Globulin 4.5 g/dL Albumin/Globulin Ratio 0.8 (1.0-2.7) L Lipase 50 U/L (73-393) L Status: improved Disposition: ADMITTED INPATIENT Condition: Serious Referrals: NOT CHOSEN LAI/,REFERRING (PCP) Pancho Prescott M.D. Dec 08, 2017 22:29
[2017-12-08] MEDS ORDERED: DiphenhydrAMINE 50mg/ml Inj IVP ONE (23:15)
[2017-12-08] MEDS ORDERED: Morphine Sulfate 2mg/ml Inj(IV/IM USE ONLY) IVP ONE (23:15)
[2017-12-09] VITALS (7 sets, daily range): BP systolic 118–160; BP diastolic 62–96
--- NOTE | 2017-12-09 00:42 | Diagnostic Imaging Report ---
EXAM: CT Angiography Chest With Intravenous Contrast CLINICAL HISTORY: PE TECHNIQUE: Axial computed tomographic angiography images of the chest with intravenous contrast using pulmonary embolism protocol. CTDI is 0.17, 44. 32 mGy and DLP is 1231 mGy-cm. One or more of the following dose reduction techniques were used: automated exposure control, adjustment of the mA and/or kV according to patient size, use of iterative reconstruction technique. 3D and MIP reconstructed images were created and reviewed. COMPARISON: No relevant prior studies available. FINDINGS: Pulmonary arteries: No evidence of pulmonary embolus. Findings are limited secondary to timing of the contrast bolus and motion artifact. Aorta: No acute findings. No thoracic aortic aneurysm. Lungs: Reticular and ground glass opacity seen within the left lower lobe and lingula which may represent atelectasis and scarring verses inflammatory infectious process. Pleural space: Unremarkable. No significant effusion. No pneumothorax. Heart: Unremarkable. No cardiomegaly. No significant pericardial effusion. No evidence of RV dysfunction. Bones/joints: Degenerative changes of the osseous structures. No acute fracture. No dislocation. Soft tissues: Unremarkable. Lymph nodes: Subcentimeter mediastinal and perihilar lymph nodes, likely reactive. IMPRESSION: 1. No evidence of pulmonary embolus. Findings are limited secondary to timing of the contrast bolus and motion artifact. 2. Reticular and ground glass opacity seen within the left lower lobe and lingula which may represent atelectasis and scarring verses inflammatory infectious process.
--- NOTE | 2017-12-09 00:54 | Diagnostic Imaging Report ---
EXAM: CT Abdomen and Pelvis With Intravenous Contrast CLINICAL HISTORY: PE TECHNIQUE: Axial computed tomography images of the abdomen and pelvis with intravenous contrast. CTDI is so 0.15, 30.86 mGy and DLP is 1551 mGy-cm. One or more of the following dose reduction techniques were used: automated exposure control, adjustment of the mA and/or kV according to patient size, use of iterative reconstruction technique. COMPARISON: CT abdomen and pelvis dated 09/27/2015 FINDINGS: Lung bases: Unremarkable. No mass. No consolidation. ABDOMEN: Liver: Decreased attenuation of the liver, which may be phase of IV contrast versus hepatic steatosis. Gallbladder and bile ducts: Unremarkable. Pancreas: Unremarkable. Spleen: Unremarkable. Adrenals: Unremarkable. Kidneys and ureters: Cyst within the right kidney. Stomach and bowel: Unremarkable. PELVIS: Appendix: Partially visualized appendix is unremarkable. Bladder: Unremarkable. Reproductive: Unremarkable as visualized. ABDOMEN and PELVIS: Intraperitoneal space: Unremarkable. Bones/joints: No acute fracture. No dislocation. Soft tissues: Ventral wall fat-containing hernia. Vasculature: Vascular calcifications. No abdominal aortic aneurysm. Lymph nodes: Unremarkable. Other findings: Please see accompanying CT scan of the chest for further details. IMPRESSION: No acute findings.
[2017-12-09] MEDS ORDERED: Norco 5mg/325mg tab ORAL PRN (04:30)
[2017-12-09] MEDS ORDERED: guaiFENesin w/Codeine 5ml Liq ud ORAL PRN ×2 (04:30→15:50)
[2017-12-09 05:37] LABS: HEMATOCRIT 44.6 % (37.0-47.0); HEMOGLOBIN 14.7 G/DL (12.0-16.0); MEAN CORPUSCULAR VOLUME 86 FL (80-99); PLATELET COUNT 332 K/UL (150-450); RED BLOOD COUNT 5.16 M/UL (4.20-5.40); RED CELL DISTRIBUTION WIDTH 11.7 % (11.6-14.8); WHITE BLOOD COUNT 21.4 K/UL (4.8-10.8)
[2017-12-09 05:42] LABS: ANION GAP 8 mmol/L (5-15); BLOOD UREA NITROGEN 7 mg/dL (7-18); CALCIUM 8.8 MG/DL (8.5-10.1); CARBON DIOXIDE 27 MMOL/L (21-32); CHLORIDE 107 MMOL/L (98-107); CREATININE 0.7 MG/DL (0.55-1.30); POTASSIUM 3.9 MMOL/L (3.5-5.1); SODIUM 141 MMOL/L (136-145)
[2017-12-09] MEDS: NovoLOG Insulin Flexpen SUBQ SCH ×4 (06:30→21:14)
[2017-12-09] MEDS ORDERED: Heparin 5000 units/ml inj SUBQ SCH (09:00)
[2017-12-09] MEDS ORDERED: Docusate 100mg cap ORAL SCH (09:00)
[2017-12-09] MEDS ORDERED: metFORMIN 500mg tab ORAL SCH (09:00)
[2017-12-09] MEDS ORDERED: Aspirin EC 81mg tab ORAL SCH (09:00)
[2017-12-09] MEDS ORDERED: Metoprolol Tartrate 50mg tab ORAL SCH (09:00)
[2017-12-09] MEDS ORDERED: Losartan 25mg tab ORAL SCH (09:00)
[2017-12-09] MEDS ORDERED: Vancomycin 1250mg/D5W 250ml IVPB SCH (10:00)
--- NOTE | 2017-12-09 12:48 | Consultation ---
History of Present Illness General Date patient seen: Dec 09, 2017 Chief Complaint: Abdominal Pain Present Illness HPI 57 year old female with hx of COPD, CVA, presented to ER with 2 days of worsening dyspnea, leg pain, swelling and abdominal pain. Some pleuritic chest discomfort. No productive cough. ++ ROBERTSON and orthopnea. Not on home O2 or have breathing machine. she was febrile. A CT of chest to rule out PE, showed pulmonary infiltrate. Allergies: Coded Allergies: No Known Allergies (Unverified , 11/23/12) Medication History Scheduled Albuterol Sulfate* (Albuterol Sulfate Mdi*), 2 PUFF INH Q4H Albuterol Sulfate* (Albuterol Sulfate Mdi*), 2 PUFF INH Q3H Amlodipine Besylate* (Amlodipine Besylate*), 5 MG ORAL DAILY, (Reported) Amlodipine Besylate* (Amlodipine Besylate*), 10 MG ORAL DAILY, (Reported) Amoxicillin* (Amoxil*), 500 MG ORAL THREE TIMES A DAY Aspirin* (Aspir 81*), 81 MG ORAL DAILY, (Reported) Atorvastatin Calcium* (Atorvastatin Calcium*), 20 MG ORAL BEDTIME, (Reported) Azithromycin* (Zithromax*), 250 MG ORAL DAILY Azithromycin* (Zithromax*), 250 MG ORAL DAILY Benzonatate* (Tessalon Perle*), 100 MG ORAL THREE TIMES A DAY, (Reported) Cephalexin* (Keflex*), 500 MG ORAL Q6H Ciprofloxacin Hcl* (Ciprofloxacin Hcl*), 500 MG ORAL Q12H Diphenhydramine Hcl* (Benadryl*), 25 MG PO Q6H, (Reported) Docusate Sodium* (Docusate Sodium*), 100 MG ORAL TWICE A DAY, (Reported) Enalapril Maleate* (Enalapril Maleate*), 20 MG ORAL DAILY, (Reported) Ibuprofen* (Motrin*), 600 MG ORAL THREE TIMES A DAY Levofloxacin* (Levaquin*), 500 MG ORAL DAILY, (Reported) Losartan Potassium* (Cozaar*), 25 MG ORAL DAILY Metformin Hcl* (Metformin Hcl*), 500 MG ORAL TWICE A DAY, (Reported) Metformin Hcl* (Metformin Hcl*), 850 MG ORAL BID, (Reported) Metoprolol Tartrate* (Metoprolol Tartrate*), 50 MG ORAL DAILY, (Reported) Nitrofurantoin Monohyd/M-Cryst (Nitrofurantoin [place]-Mcr 100 mg), 100 MG ORAL EVERY 12 HOURS, (Reported) Omeprazole (Omeprazole), 20 MG ORAL AC, (Reported) Scheduled PRN D-Methorphan Hb/Prometh Hcl* (Promethazine-Dm Syrup*), 5 ML ORAL Q6H PRN for For Cough Guaifenesin/Codeine Phos* (Robitussin Ac*), 5 ML ORAL Q6H PRN for For Cough Guaifenesin/Codeine Phos* (Robitussin Ac*), 1 TSP ORAL Q6H PRN for For Cough Hydrocodone Bit/Acetaminophen 5-325* ([place] 5-325*), 1 TAB ORAL Q6H PRN for For Pain Ibuprofen* (Motrin*), 600 MG ORAL Q8H PRN for For Pain Ibuprofen* (Motrin*), 600 MG ORAL Q8H PRN for For Pain Miscellaneous Medications Loperamide HCl (Loperamide), 2 MG ORAL, (Reported) Patient History Healthcare decision maker Resuscitation status Full Code Advanced Directive on File No Past Medical/Surgical History Past Medical/Surgical History: (1) Diabetes mellitus (2) COPD (chronic obstructive pulmonary disease) (3) tobacco abuse Review of Systems All Other Systems: negative except mentioned in HPI Physical Exam General Appearance: WD/WN Lines, tubes and drains: peripheral HEENT: PERRL Neck: non-tender, normal alignment Respiratory/Chest: chest wall non-tender, lungs clear Breasts: no masses Cardiovascular/Chest: normal rate Abdomen: normal bowel sounds, no organomegaly Genitourinary/Rectal: normal genital exam Last 24 Hour Vital Signs Date Time Temp Pulse Resp B/P (MAP) Pulse Ox O2 Delivery O2 Flow Rate FiO2 12/09/17 12:00 66 12/09/17 10:14 81 141/81 12/09/17 09:52 81 20 141/81 (101) 12/09/17 09:08 133/96 12/09/17 09:08 84 133/96 12/09/17 08:00 97.0 84 20 133/96 (108) 99 97.0 12/09/17 08:00 Nasal Cannula 2.0 12/09/17 08:00 71 12/09/17 04:00 98.4 98 22 160/81 (107) 96 98.4 12/09/17 04:00 Nasal Cannula 2.0 12/09/17 03:32 99 12/09/17 03:10 98.1 12 143/81 92 Nasal Cannula 2.0 28 98.1 12/09/17 01:30 Nasal Cannula 2.0 12/09/17 01:27 90 12/09/17 01:20 98.1 89 12 143/81 (101) 92 98.1 12/08/17 23:28 100.8 12/08/17 20:56 103 24 97 Nasal Cannula 2.0 28 12/08/17 20:50 28 12/08/17 20:40 101 22 91 Nasal Cannula 2.0 28 12/08/17 20:10 100.8 18 101/68 81 Room Air 100.8 12/08/17 19:57 100.8 116 18 101/68 81 Room Air 100.8 Intake and Output 12/08/17 12/09/17 19:00 07:00 Intake Total 260 ml Output Total 250 ml Balance 10 ml Intake Oral 200 ml IV Total 60 ml Output Urine Total 250 ml # Voids 4 Laboratory Tests Test 12/08/17 20:25 12/08/17 20:26 12/08/17 20:47 12/09/17 05:15 Urine Color Pale yellow Urine Appearance Clear Urine pH 5 (4.5-8.0) Urine Specific [place] 1.005 (1.005-1.035) Urine Protein Negative (NEGATIVE) Urine Glucose (UA) Negative (NEGATIVE) Urine Ketones Negative (NEGATIVE) Urine Blood Negative (NEGATIVE) Urine Nitrite Negative (NEGATIVE) Urine Bilirubin Negative (NEGATIVE) Urine Urobilinogen Normal MG/DL (0.0-1.0) Urine Leukocyte Esterase 2+ (NEGATIVE) H Urine RBC 0-2 /HPF (0 - 2) Urine WBC 15-20 /HPF (0 - 2) H Urine Squamous Epithelial Cells Moderate /LPF (NONE/OCC) H Urine Bacteria Few /HPF (NONE) Urine Opiates Screen Negative (NEGATIVE) Urine Barbiturates Screen Negative (NEGATIVE) Phencyclidine (PCP) Screen Negative (NEGATIVE) Urine Amphetamines Screen Negative (NEGATIVE) Urine Benzodiazepines Screen Negative (NEGATIVE) Urine Cocaine Screen Negative (NEGATIVE) Urine Marijuana (THC) Screen Negative (NEGATIVE) Arterial Blood pH 7.391 (7.350-7.450) Arterial Blood Partial Pressure CO2 40.2 mmHg (35.0-45.0) Arterial Blood Partial Pressure O2 42.7 mmHg (75.0-100.0) Arterial Blood HCO3 23.8 mmol/L (22.0-26.0) Arterial Blood Oxygen Saturation 77.5 % (92.0-98.0) L Arterial Blood Base Excess -1.0 Josh Test Positive White Blood Count 23.6 K/UL (4.8-10.8) *H 21.4 K/UL (4.8-10.8) H Red Blood Count 5.32 M/UL (4.20-5.40) 5.16 M/UL (4.20-5.40) Hemoglobin 15.4 G/DL (12.0-16.0) 14.7 G/DL (12.0-16.0) Hematocrit 46.7 % (37.0-47.0) 44.6 % (37.0-47.0) Mean Corpuscular Volume 88 FL (80-99) 86 FL (80-99) Mean Corpuscular Hemoglobin 29.0 PG (27.0-31.0) 28.4 PG (27.0-31.0) Mean Corpuscular Hemoglobin Concent 33.0 G/DL (32.0-36.0) 32.9 G/DL (32.0-36.0) Red Cell Distribution Width 11.5 % (11.6-14.8) L 11.7 % (11.6-14.8) Platelet Count 345 K/UL (150-450) 332 K/UL (150-450) Mean Platelet Volume 5.5 FL (6.5-10.1) L 5.6 FL (6.5-10.1) L Neutrophils (%) (Auto) % (45.0-75.0) % (45.0-75.0) Lymphocytes (%) (Auto) % (20.0-45.0) % (20.0-45.0) Monocytes (%) (Auto) % (1.0-10.0) % (1.0-10.0) Eosinophils (%) (Auto) % (0.0-3.0) % (0.0-3.0) Basophils (%) (Auto) % (0.0-2.0) % (0.0-2.0) Differential Total Cells Counted 100 100 Neutrophils % (Manual) 84 % (45-75) H 81 % (45-75) H Lymphocytes % (Manual) 6 % (20-45) L 11 % (20-45) L Monocytes % (Manual) 2 % (1-10) 3 % (1-10) Eosinophils % (Manual) 2 % (0-3) 5 % (0-3) H Basophils % (Manual) 0 % (0-2) 0 % (0-2) Band Neutrophils 6 % (0-8) 0 % (0-8) Platelet Estimate Adequate Adequate Platelet Morphology Normal Normal Red Blood Cell Morphology Normal Prothrombin Time 10.4 SEC (9.30-11.50) Prothromb Time International Ratio 1.0 (0.9-1.1) Activated Partial Thromboplast Time 30 SEC (23-33) Sodium Level 139 MMOL/L (136-145) 141 MMOL/L (136-145) Potassium Level 3.9 MMOL/L (3.5-5.1) 3.9 MMOL/L (3.5-5.1) Chloride Level 103 MMOL/L (98-107) 107 MMOL/L (98-107) Carbon Dioxide Level 26 MMOL/L (21-32) 27 MMOL/L (21-32) Anion Gap 11 mmol/L (5-15) 8 mmol/L (5-15) Blood Urea Nitrogen 11 mg/dL (7-18) 7 mg/dL (7-18) Creatinine 0.9 MG/DL (0.55-1.30) 0.7 MG/DL (0.55-1.30) Estimat Glomerular Filtration Rate > 60 mL/min (>60) > 60 mL/min (>60) Glucose Level 136 MG/DL (74-106) H 122 MG/DL (74-106) H Lactic Acid Level 1.50 mmol/L (0.4-2.0) Calcium Level 8.7 MG/DL (8.5-10.1) 8.8 MG/DL (8.5-10.1) Total Bilirubin 0.6 MG/DL (0.2-1.0) Aspartate Amino Transf (AST/SGOT) 18 U/L (15-37) Alanine Aminotransferase (ALT/SGPT) 22 U/L (12-78) Alkaline Phosphatase 131 U/L (46-116) H Total Creatine Kinase 161 U/L (26-308) Troponin I 0.016 ng/mL (0.000-0.056) Pro-B-Type Natriuretic Peptide 130 pg/mL (0-125) H Total Protein 7.9 G/DL (6.4-8.2) Albumin 3.4 G/DL (3.4-5.0) Globulin 4.5 g/dL Albumin/Globulin Ratio 0.8 (1.0-2.7) L Lipase 50 U/L (73-393) L Height (Feet): 5 Height (Inches): 4.00 Weight (Pounds): 213 Medications Current Medications Medications (Trade) Dose Ordered Sig/Zakiya Route PRN Reason Start Time Stop Time Status Last Admin Dose Admin Acetaminophen/ Hydrocodone Bitart ([place] 5/325) 1 tab Q6H PRN ORAL For Pain 12/09/17 04:30 12/16/17 04:29 12/09/17 06:01 Amlodipine Besylate (Norvasc) 5 mg DAILY ORAL 12/09/17 09:00 01/08/18 08:59 12/09/17 09:08 Aspirin (Ecotrin) 81 mg DAILY ORAL 12/09/17 09:00 01/08/18 08:59 12/09/17 09:08 Atorvastatin Calcium (Lipitor) 20 mg BEDTIME ORAL 12/09/17 21:00 01/08/18 20:59 Barium Sulfate (Readi-Cat 2) 450 ml NOW PRN ORAL Radiology Procedure 12/08/17 20:30 12/10/17 20:26 Dextrose (Dextrose 50%) 25 ml STAT PRN IV Hypoglycemia 12/09/17 04:15 01/08/18 04:14 Dextrose (Dextrose 50%) 50 ml STAT PRN IV Hypoglycemia 12/09/17 04:15 01/08/18 04:14 Docusate Sodium (Colace) 100 mg TWICE A DAY ORAL 12/09/17 09:00 01/08/18 08:59 12/09/17 09:08 Guaifenesin/ Codeine Phosphate (Robitussin with codeine) 5 ml Q6H PRN ORAL For Cough 12/09/17 04:30 01/08/18 04:29 Heparin Sodium (Porcine) (Heparin 5000 units/ml) 5,000 units EVERY 12 HOURS SUBQ 12/09/17 09:00 01/08/18 08:59 12/09/17 09:07 Insulin Aspart (NovoLOG) BEFORE MEALS AND HS SUBQ 12/09/17 06:30 01/08/18 06:29 Iopamidol (Isovue-370 150ml) 150 ml NOW PRN INJ Radiology Procedure 12/08/17 20:30 12/10/17 20:26 Losartan Potassium (Cozaar) 25 mg DAILY ORAL 12/09/17 09:00 01/08/18 08:59 12/09/17 09:08 Metformin HCl (Glucophage) 500 mg TWICE A DAY ORAL 12/09/17 09:00 01/08/18 08:59 12/09/17 09:09 Metoprolol Tartrate (Lopressor) 50 mg DAILY ORAL 12/09/17 09:00 01/08/18 08:59 12/09/17 10:14 Piperacillin Sod/ Tazobactam Sod 3.375 gm/Dextrose 110 ml @ 27.5 mls/hr EVERY 8 HOURS IVPB 12/09/17 14:00 12/14/17 13:59 Sodium Chloride 1,000 ml @ 60 mls/hr [id number] IV 12/09/17 05:00 01/08/18 04:59 12/09/17 05:58 Vancomycin HCl (Vanco rx to dose) 1 ea DAILY PRN MISC Per rx protocol 12/09/17 08:00 01/08/18 07:59 Vancomycin HCl/ Dextrose 250 ml @ 166.667 mls/hr Q12HR@1000,2200 IVPB 12/09/17 10:00 12/14/17 09:59 12/09/17 09:37 Assessment/Plan Problem List: (1) Left lower lobe pulmonary infiltrate ICD Codes: R91.8 - Other nonspecific abnormal finding of lung field SNOMED: 378956654 (2) Sepsis ICD Codes: A41.9 - Sepsis, unspecified organism SNOMED: 99962033 Qualifiers: Qualified Codes: A41.9 - Sepsis, unspecified organism (3) UTI (urinary tract infection) ICD Codes: N39.0 - Urinary tract infection, site not specified SNOMED: 49084987 Qualifiers: Qualified Codes: N39.0 - Urinary tract infection, site not specified (4) Diabetes mellitus ICD Codes: E11.9 - Type 2 diabetes mellitus without complications SNOMED: 90115135 (5) COPD (chronic obstructive pulmonary disease) ICD Codes: J44.9 - Chronic obstructive pulmonary disease, unspecified SNOMED: 45578346 Assessment/Plan iv abx check sputum respiratory treatment check electrolytes check cultures titrate fio2 symptomatic treatment. Tara Ramsey MD Dec 09, 2017 12:48
--- NOTE | 2017-12-09 13:45 | Cardiology Report ---
APPROVED REPORT EKG Measurement Heart [id number] Sinus tachycardia Right bundle branch block Abnormal ECG
[2017-12-09] MEDS ORDERED: Piperacillin/Tazobactam 3.375 GM in D5W 110 ML IVPB SCH (14:00)
[2017-12-09] MEDS ORDERED: 1/2 NS 1000ml IV ONE (16:33)
[2017-12-09] MEDS ORDERED: Tubing IV Secondary IV ONE (16:33)
[2017-12-09] MEDS ORDERED: NS 275ml ONE (16:33)
[2017-12-09] MEDS: Docusate 100mg cap ORAL SCH (17:24)
[2017-12-09] MEDS: Atorvastatin 20mg tab ORAL SCH (20:22)
[2017-12-09] MEDS: Norco 5mg/325mg tab ORAL PRN (20:22)
[2017-12-09] MEDS: Heparin 5000 units/ml inj SUBQ SCH (20:26)
[2017-12-09] MEDS ORDERED: Isovue-370 150ml vial INJ PRN (20:30)
[2017-12-09] MEDS ORDERED: Atorvastatin 20mg tab ORAL SCH (21:00)
[2017-12-09] MEDS: Vancomycin 1250mg/D5W 250ml 250 ML IVPB SCH (21:20)
--- NOTE | 2017-12-10 | History and Physical Report ---
DATE OF ADMISSION: 12/08/2017 APPROXIMATE TIME: 10 a.m. CONSULTANTS: 1. Tara Ramsey M.D. 2. Vamsi Jauregui M.D. CHIEF COMPLAINT: Shortness of breath, hypoxia, pneumonia, and sepsis. BRIEF HISTORY: The patient is a 57-year-old female who lives at home, presents with two-day increased shortness of breath, was quite hypoxic, and weak, came to [facility] ER, diagnosed with pneumonia, sepsis, and hypoxia, admitted to [facility] for further care. Currently, O2 NC, calm, slight short of breath in bed. No complaint. REVIEW OF SYSTEMS: No chest pain. Slight short of breath. No nausea, vomiting, or diarrhea. PAST MEDICAL HISTORY: Hypertension and diabetes. PAST SURGICAL HISTORY: Hysterectomy. ALLERGIES: Denies. MEDICATIONS: Atorvastatin, Zosyn, vancomycin, heparin, amlodipine, aspirin, losartan, metformin, , vancomycin, and hydrocodone. SOCIAL HISTORY: Positive smoking. No alcohol. No intravenous drug abuse. FAMILY HISTORY: Noncontributory. PHYSICAL EXAMINATION: GENERAL: Calm in bed, oriented x3, in no acute distress. VITAL SIGNS: Temperature is 97 degrees, pulse 84, respirations 20, and blood pressure 133/96. CARDIOVASCULAR: No murmur. LUNGS: Distant, poor exchange with some crackles. ABDOMEN: Bowel sounds positive. Nontender. Nondistended. No cyanosis, clubbing, or edema. NEUROLOGIC: Cranial nerves II through XII grossly intact. Deep tendon reflexes 2+/4. Muscle strength 5/5 bilaterally. LABORATORY AND DIAGNOSTIC DATA: Labs at this time show initial white count 23 and now at 21.4, otherwise CBC is normal. BMP shows glucose 122, otherwise BMP is normal. Troponin is 0.016. BNP is 130. INR is 1.0 and PTT is 30. Urine toxicology is negative. Urinalysis show 2+ leukocyte esterase. ASSESSMENT: 1. Hypoxia. 2. Shortness of breath. 3. Pneumonia. 4. UTI. 5. Sepsis. 6. Hypertension. 7. Diabetes. 8. COPD. PLAN: 1. O2 and pulmonary treatment. 2. Antibiotics per Infectious Disease. 3. Blood pressure and blood sugar control. 4. Dietary followup. 5. CBC and BMP in the morning. Cholo Gong D.O. DR: KINGSLEY JOB#: [id number] CC:
[2017-12-10 00:11] VITALS: BP 142/61
[2017-12-10] MEDS: Piperacillin/Tazobactam 3.375 GM in D5W 110 ML IVPB SCH ×4 (00:49→22:49)
[2017-12-10 04:00] VITALS: BP 132/67
[2017-12-10] MEDS: Norco 5mg/325mg tab ORAL PRN ×2 (04:49→21:48)
[2017-12-10] MEDS: NovoLOG Insulin Flexpen SUBQ SCH ×4 (06:29→20:54)
[2017-12-10 08:10] LABS: BASOPHILS % (AUTO) 0.8 % (0.0-2.0); EOSINOPHILS % (AUTO) 15.9 % (0.0-3.0); HEMATOCRIT 44.5 % (37.0-47.0); LYMPHOCYTES % (AUTO) 28.7 % (20.0-45.0); MEAN CORPUSCULAR VOLUME 86 FL (80-99); MONOCYTES % (AUTO) 2.6 % (1.0-10.0); PLATELET COUNT 311 K/UL (150-450); RED BLOOD COUNT 5.16 M/UL (4.20-5.40); RED CELL DISTRIBUTION WIDTH 11.7 % (11.6-14.8); WHITE BLOOD COUNT 9.4 K/UL (4.8-10.8)
[2017-12-10 08:28] LABS: ALANINE AMINOTRANSFERASE 22 U/L (12-78); ALBUMIN 3.4 G/DL (3.4-5.0); ALBUMIN/GLOBULIN RATIO 0.7 (1.0-2.7); ALKALINE PHOSPHATASE 124 U/L (46-116); ANION GAP 7 mmol/L (5-15); ASPARTATE AMINO TRANSFERASE 14 U/L (15-37); BILIRUBIN,TOTAL 0.5 MG/DL (0.2-1.0); BLOOD UREA NITROGEN 8 mg/dL (7-18); CALCIUM 9.4 MG/DL (8.5-10.1); CARBON DIOXIDE 28 MMOL/L (21-32); CHLORIDE 104 MMOL/L (98-107); CREATININE 0.8 MG/DL (0.55-1.30); POTASSIUM 3.9 MMOL/L (3.5-5.1); SODIUM 139 MMOL/L (136-145)
[2017-12-10 08:33] VITALS: BP 125/78
[2017-12-10] MEDS: Aspirin EC 81mg tab ORAL SCH (08:55)
[2017-12-10] MEDS: Docusate 100mg cap ORAL SCH ×2 (08:55→18:39)
[2017-12-10] MEDS: Metoprolol Tartrate 50mg tab ORAL SCH (08:57)
[2017-12-10] MEDS: Heparin 5000 units/ml inj SUBQ SCH ×2 (09:00→20:53)
[2017-12-10] MEDS: Losartan 25mg tab ORAL SCH (09:17)
[2017-12-10] MEDS: Vancomycin 1250mg/D5W 250ml 250 ML IVPB SCH ×2 (10:26→20:52)
--- NOTE | 2017-12-10 12:08 | Diagnostic Imaging Report ---
Indication: Dyspnea Comparison: None A single view chest radiograph was obtained. Findings: Patchy left basal infiltrate, less likely atelectasis demonstrated. Similar findings on the prior occasion. Heart size remains normal. The bones are osteopenic. IMPRESSION: Suspected infiltrate left lung base. No change
[2017-12-10 12:24] VITALS: BP 138/81
--- NOTE | 2017-12-10 12:28 | Consultation ---
History of Present Illness General Date patient seen: Dec 10, 2017 Chief Complaint: Abdominal Pain Present Illness HPI 57 y/o F with hx of tobacco abuse, DM2, hysterectomy, HTN, CVA, HLD, COPD presents to ED on 12/08 with 2 days of worsening SOB (ROBERTSON and orthopnea), pleuritic CP, leg pain and swelling and abd pain (8/10, constant, pressure and aching quality). In the ED hypoxic. CTA chest no PE Denies cough, n/v/d, dysuria Tm 100.8, now afebrile in >24hrs Leukocytosis up to 23 now resolved Feeling much better now; SOB and cough improved Allergies: Coded Allergies: No Known Allergies (Unverified , 11/23/12) Medication History Scheduled Albuterol Sulfate* (Albuterol Sulfate Mdi*), 2 PUFF INH Q4H Albuterol Sulfate* (Albuterol Sulfate Mdi*), 2 PUFF INH Q3H Amlodipine Besylate* (Amlodipine Besylate*), 5 MG ORAL DAILY, (Reported) Amlodipine Besylate* (Amlodipine Besylate*), 10 MG ORAL DAILY, (Reported) Amoxicillin* (Amoxil*), 500 MG ORAL THREE TIMES A DAY Aspirin* (Aspir 81*), 81 MG ORAL DAILY, (Reported) Atorvastatin Calcium* (Atorvastatin Calcium*), 20 MG ORAL BEDTIME, (Reported) Azithromycin* (Zithromax*), 250 MG ORAL DAILY Azithromycin* (Zithromax*), 250 MG ORAL DAILY Benzonatate* (Tessalon Perle*), 100 MG ORAL THREE TIMES A DAY, (Reported) Cephalexin* (Keflex*), 500 MG ORAL Q6H Ciprofloxacin Hcl* (Ciprofloxacin Hcl*), 500 MG ORAL Q12H Diphenhydramine Hcl* (Benadryl*), 25 MG PO Q6H, (Reported) Docusate Sodium* (Docusate Sodium*), 100 MG ORAL TWICE A DAY, (Reported) Enalapril Maleate* (Enalapril Maleate*), 20 MG ORAL DAILY, (Reported) Ibuprofen* (Motrin*), 600 MG ORAL THREE TIMES A DAY Levofloxacin* (Levaquin*), 500 MG ORAL DAILY, (Reported) Losartan Potassium* (Cozaar*), 25 MG ORAL DAILY Metformin Hcl* (Metformin Hcl*), 500 MG ORAL TWICE A DAY, (Reported) Metformin Hcl* (Metformin Hcl*), 850 MG ORAL BID, (Reported) Metoprolol Tartrate* (Metoprolol Tartrate*), 50 MG ORAL DAILY, (Reported) Nitrofurantoin Monohyd/M-Cryst (Nitrofurantoin [place]-Mcr 100 mg), 100 MG ORAL EVERY 12 HOURS, (Reported) Omeprazole (Omeprazole), 20 MG ORAL AC, (Reported) Scheduled PRN D-Methorphan Hb/Prometh Hcl* (Promethazine-Dm Syrup*), 5 ML ORAL Q6H PRN for For Cough Guaifenesin/Codeine Phos* (Robitussin Ac*), 5 ML ORAL Q6H PRN for For Cough Guaifenesin/Codeine Phos* (Robitussin Ac*), 1 TSP ORAL Q6H PRN for For Cough Hydrocodone Bit/Acetaminophen 5-325* ([place] 5-325*), 1 TAB ORAL Q6H PRN for For Pain Ibuprofen* (Motrin*), 600 MG ORAL Q8H PRN for For Pain Ibuprofen* (Motrin*), 600 MG ORAL Q8H PRN for For Pain Miscellaneous Medications Loperamide HCl (Loperamide), 2 MG ORAL, (Reported) Patient History Healthcare decision maker Resuscitation status Full Code Advanced Directive on File No Patient History Narrative Pmhx: as above Shx: Positive smoking. No alcohol. No intravenous drug abuse. [place] in a [employer] store. Fhx: non contributory Review of Systems All Other Systems: negative except mentioned in HPI Physical Exam Physical Exam Narrative GENERAL: Calm in bed, oriented x3, in no acute distress. CARDIOVASCULAR: No murmur. LUNGS: CTA x2 ABDOMEN: Bowel sounds positive. Nontender. Nondistended. No cyanosis, clubbing, or edema. NEUROLOGIC: Cranial nerves II through XII grossly intact. Deep tendon reflexes 2+/4. Muscle strength 5/5 bilaterally. Last 24 Hour Vital Signs Date Time Temp Pulse Resp B/P (MAP) Pulse Ox O2 Delivery O2 Flow Rate FiO2 12/10/17 09:17 125/80 12/10/17 09:00 Room Air 12/10/17 08:57 81 125/78 12/10/17 08:57 81 125/78 12/10/17 08:33 97.2 81 20 125/78 (94) 97 97.2 12/10/17 05:48 97.0 12/10/17 04:49 97.0 12/10/17 04:00 97.0 79 18 132/67 (88) 93 97.0 12/10/17 00:11 97.3 79 18 142/61 (88) 93 97.3 12/09/17 22:15 Room Air 12/09/17 20:22 97.9 12/09/17 20:00 97.7 94 17 139/70 (93) 100 97.7 12/09/17 16:45 Nasal Cannula 2.0 12/09/17 16:11 97.9 71 18 118/62 (80) 92 97.9 Intake and Output 12/09/17 12/10/17 19:00 07:00 Intake Total 2013.34 ml 720.000 ml Balance 2013.34 ml 720.000 ml Intake Oral 1080 ml 240 ml IV Total 933.34 ml 480.000 ml # Voids 7 4 # Bowel Movements 2 Laboratory Tests Test 12/10/17 06:50 White Blood Count 9.4 K/UL (4.8-10.8) # Red Blood Count 5.16 M/UL (4.20-5.40) Hemoglobin 15.0 G/DL (12.0-16.0) Hematocrit 44.5 % (37.0-47.0) Mean Corpuscular Volume 86 FL (80-99) Mean Corpuscular Hemoglobin 29.1 PG (27.0-31.0) Mean Corpuscular Hemoglobin Concent 33.7 G/DL (32.0-36.0) Red Cell Distribution Width 11.7 % (11.6-14.8) Platelet Count 311 K/UL (150-450) Mean Platelet Volume 5.4 FL (6.5-10.1) L Neutrophils (%) (Auto) 52.0 % (45.0-75.0) Lymphocytes (%) (Auto) 28.7 % (20.0-45.0) Monocytes (%) (Auto) 2.6 % (1.0-10.0) Eosinophils (%) (Auto) 15.9 % (0.0-3.0) H Basophils (%) (Auto) 0.8 % (0.0-2.0) Sodium Level 139 MMOL/L (136-145) Potassium Level 3.9 MMOL/L (3.5-5.1) Chloride Level 104 MMOL/L (98-107) Carbon Dioxide Level 28 MMOL/L (21-32) Anion Gap 7 mmol/L (5-15) Blood Urea Nitrogen 8 mg/dL (7-18) Creatinine 0.8 MG/DL (0.55-1.30) Estimat Glomerular Filtration Rate > 60 mL/min (>60) Glucose Level 118 MG/DL (74-106) H Calcium Level 9.4 MG/DL (8.5-10.1) Total Bilirubin 0.5 MG/DL (0.2-1.0) Aspartate Amino Transf (AST/SGOT) 14 U/L (15-37) L Alanine Aminotransferase (ALT/SGPT) 22 U/L (12-78) Alkaline Phosphatase 124 U/L (46-116) H Pro-B-Type Natriuretic Peptide 321 pg/mL (0-125) H Total Protein 8.2 G/DL (6.4-8.2) Albumin 3.4 G/DL (3.4-5.0) Globulin 4.8 g/dL Albumin/Globulin Ratio 0.7 (1.0-2.7) L Vancomycin Level Trough 13.3 ug/mL (5.0-12.0) H Height (Feet): 5 Height (Inches): 4.00 Weight (Pounds): 213 Medications Current Medications Medications (Trade) Dose Ordered Sig/Zakiya Route PRN Reason Start Time Stop Time Status Last Admin Dose Admin Acetaminophen/ Hydrocodone Bitart ([place] 5/325) 1 tab Q6H PRN ORAL For Pain 12/09/17 15:50 12/16/17 15:49 12/10/17 04:49 Amlodipine Besylate (Norvasc) 5 mg DAILY ORAL 12/10/17 09:00 01/08/18 08:59 12/10/17 08:57 Aspirin (Ecotrin) 81 mg DAILY ORAL 12/10/17 09:00 01/08/18 08:59 12/10/17 08:55 Atorvastatin Calcium (Lipitor) 20 mg BEDTIME ORAL 12/09/17 21:00 01/08/18 20:59 12/09/17 20:22 Barium Sulfate (Readi-Cat 2) 450 ml NOW PRN ORAL Radiology Procedure 12/09/17 20:30 12/10/17 20:26 Dextrose (Dextrose 50%) 25 ml STAT PRN IV Hypoglycemia 12/10/17 04:15 01/08/18 04:14 Dextrose (Dextrose 50%) 50 ml STAT PRN IV Hypoglycemia 12/10/17 04:15 01/08/18 04:14 Docusate Sodium (Colace) 100 mg TWICE A DAY ORAL 12/09/17 18:00 01/08/18 08:59 12/10/17 08:55 Guaifenesin/ Codeine Phosphate (Robitussin with codeine) 5 ml Q6H PRN ORAL For Cough 12/09/17 15:50 01/08/18 15:49 Heparin Sodium (Porcine) (Heparin 5000 units/ml) 5,000 units EVERY 12 HOURS SUBQ 12/09/17 21:00 01/08/18 08:59 12/10/17 09:00 Insulin Aspart (NovoLOG) BEFORE MEALS AND HS SUBQ 12/09/17 16:30 01/08/18 06:29 12/10/17 11:32 Iopamidol (Isovue-370 150ml) 150 ml NOW PRN INJ Radiology Procedure 12/09/17 20:30 12/10/17 20:26 Losartan Potassium (Cozaar) 25 mg DAILY ORAL 12/10/17 09:00 01/08/18 08:59 12/10/17 09:17 Metoprolol Tartrate (Lopressor) 50 mg DAILY ORAL 12/10/17 09:00 01/08/18 08:59 12/10/17 08:57 Piperacillin Sod/ Tazobactam Sod 3.375 gm/Dextrose 110 ml @ 27.5 mls/hr EVERY 8 HOURS IVPB 12/09/17 22:00 12/14/17 21:59 12/10/17 06:26 Vancomycin HCl (Vanco rx to dose) 1 ea DAILY PRN MISC Per rx protocol 12/10/17 09:00 01/08/18 07:59 Vancomycin HCl/ Dextrose 250 ml @ 166.667 mls/hr Q12HR@1000,2200 IVPB 12/09/17 22:00 12/14/17 09:59 12/10/17 10:26 Assessment/Plan Assessment/Plan Abx: IV Vanco 12/08- Zosyn 12/08- Assessment: Sepsis; SP- 2ry to PNA (CAP) -12/10 CXR: Suspected infiltrate left lung base. No change -12/08 CTA Chest: No evidence of pulmonary embolus. Findings are limited secondary to timing of the contrast bolus and motion artifact. Reticular and ground glass opacity seen within the left lower lobe and lingula which may represent atelectasis and scarring verses inflammatory infectious process. -CT abd/p w/: No acute findings. -u/a wbc 15-20, nit neg, leuk +2; ucx 20-30k mixed gram positive growth -Bcx NTD Fever, improving Leukocytosis, SP tobacco abuse DM2 hysterectomy HTN CVA HLD COPD Plan: -On empiric IV Vanco and Zosyn #3/7 pending cultures -OK to discharge home on PO Levaquin to complete course. -f/u cx -Monitor CBC/CMP, temperatures Thank you for this consultation. Will continue to follow along with you. Discussed with AICHA. Soni Diallo M.D. Dec 10, 2017 12:28
--- NOTE | 2017-12-10 12:33 | Pulmonology Progress Note ---
Assessment/Plan Problems: (1) Left lower lobe pulmonary infiltrate (2) Sepsis (3) UTI (urinary tract infection) (4) Diabetes mellitus (5) COPD (chronic obstructive pulmonary disease) Assessment/Plan afebrile check cultures check sputum titrate fio2 to sat of 92% respiratory treatment dvt prophylaxis Subjective ROS Limited/Unobtainable: No Constitutional: Reports: no symptoms HEENT: Repors: no symptoms Respiratory: Reports: no symptoms Allergies: Coded Allergies: No Known Allergies (Unverified , 11/23/12) Objective Last 24 Hour Vital Signs Date Time Temp Pulse Resp B/P (MAP) Pulse Ox O2 Delivery O2 Flow Rate FiO2 12/10/17 12:24 97.6 62 18 138/81 (100) 94 97.6 12/10/17 09:17 125/80 12/10/17 09:00 Room Air 12/10/17 08:57 81 125/78 12/10/17 08:57 81 125/78 12/10/17 08:33 97.2 81 20 125/78 (94) 97 97.2 12/10/17 05:48 97.0 12/10/17 04:49 97.0 12/10/17 04:00 97.0 79 18 132/67 (88) 93 97.0 12/10/17 00:11 97.3 79 18 142/61 (88) 93 97.3 12/09/17 22:15 Room Air 12/09/17 20:22 97.9 12/09/17 20:00 97.7 94 17 139/70 (93) 100 97.7 12/09/17 16:45 Nasal Cannula 2.0 12/09/17 16:11 97.9 71 18 118/62 (80) 92 97.9 Intake and Output 12/09/17 12/10/17 19:00 07:00 Intake Total 2013.34 ml 720.000 ml Balance 2013.34 ml 720.000 ml Intake Oral 1080 ml 240 ml IV Total 933.34 ml 480.000 ml # Voids 7 4 # Bowel Movements 2 General Appearance: WD/WN HEENT: normocephalic, atraumatic Respiratory/Chest: chest wall non-tender, lungs clear Breasts: no masses Cardiovascular: normal peripheral pulses Abdomen: normal bowel sounds, soft, non tender Genitourinary: normal external genitalia Skin: no rash 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 Lymphatic: no neck adenopathy Microbiology Date/Time Source Procedure Growth Status 12/08/17 20:47 Blood Blood Culture - Preliminary NO GROWTH AFTER 24 HOURS Resulted 12/08/17 20:47 Blood Blood Culture - Preliminary NO GROWTH AFTER 24 HOURS Resulted 12/08/17 20:25 Urine,Clean Catch Urine Culture - Preliminary Mixed Gram Positive Organism Resulted Laboratory Tests 12/10/17 06:50: White Blood Count 9.4#, Red Blood Count 5.16, Hemoglobin 15.0, Hematocrit 44.5, Mean Corpuscular Volume 86, Mean Corpuscular Hemoglobin 29.1, Mean Corpuscular Hemoglobin Concent 33.7, Red Cell Distribution Width 11.7, Platelet Count 311, Mean Platelet Volume 5.4L, Neutrophils (%) (Auto) 52.0, Lymphocytes (%) (Auto) 28.7, Monocytes (%) (Auto) 2.6, Eosinophils (%) (Auto) 15.9H, Basophils (%) ( Auto) 0.8, Sodium Level 139, Potassium Level 3.9, Chloride Level 104, Carbon Dioxide Level 28, Anion Gap 7, Blood Urea Nitrogen 8, Creatinine 0.8, Estimat Glomerular Filtration Rate > 60, Glucose Level 118H, Calcium Level 9.4, Total Bilirubin 0.5, Aspartate Amino Transf (AST/SGOT) 14L, Alanine Aminotransferase ( ALT/SGPT) 22, Alkaline Phosphatase 124H, Pro-B-Type Natriuretic Peptide 321H, Total Protein 8.2, Albumin 3.4, Globulin 4.8, Albumin/Globulin Ratio 0.7L, Vancomycin Level Trough 13.3H Current Medications Medications (Trade) Dose Ordered Sig/Zakiya Route PRN Reason Start Time Stop Time Status Last Admin Dose Admin Acetaminophen/ Hydrocodone Bitart ([place] 5/325) 1 tab Q6H PRN ORAL For Pain 12/09/17 15:50 12/16/17 15:49 12/10/17 04:49 Amlodipine Besylate (Norvasc) 5 mg DAILY ORAL 12/10/17 09:00 01/08/18 08:59 12/10/17 08:57 Aspirin (Ecotrin) 81 mg DAILY ORAL 12/10/17 09:00 01/08/18 08:59 12/10/17 08:55 Atorvastatin Calcium (Lipitor) 20 mg BEDTIME ORAL 12/09/17 21:00 01/08/18 20:59 12/09/17 20:22 Barium Sulfate (Readi-Cat 2) 450 ml NOW PRN ORAL Radiology Procedure 12/09/17 20:30 12/10/17 20:26 Dextrose (Dextrose 50%) 25 ml STAT PRN IV Hypoglycemia 12/10/17 04:15 01/08/18 04:14 Dextrose (Dextrose 50%) 50 ml STAT PRN IV Hypoglycemia 12/10/17 04:15 01/08/18 04:14 Docusate Sodium (Colace) 100 mg TWICE A DAY ORAL 12/09/17 18:00 01/08/18 08:59 12/10/17 08:55 Guaifenesin/ Codeine Phosphate (Robitussin with codeine) 5 ml Q6H PRN ORAL For Cough 12/09/17 15:50 01/08/18 15:49 Heparin Sodium (Porcine) (Heparin 5000 units/ml) 5,000 units EVERY 12 HOURS SUBQ 12/09/17 21:00 01/08/18 08:59 12/10/17 09:00 Insulin Aspart (NovoLOG) BEFORE MEALS AND HS SUBQ 12/09/17 16:30 01/08/18 06:29 12/10/17 11:32 Iopamidol (Isovue-370 150ml) 150 ml NOW PRN INJ Radiology Procedure 12/09/17 20:30 12/10/17 20:26 Losartan Potassium (Cozaar) 25 mg DAILY ORAL 12/10/17 09:00 01/08/18 08:59 12/10/17 09:17 Metoprolol Tartrate (Lopressor) 50 mg DAILY ORAL 12/10/17 09:00 01/08/18 08:59 12/10/17 08:57 Piperacillin Sod/ Tazobactam Sod 3.375 gm/Dextrose 110 ml @ 27.5 mls/hr EVERY 8 HOURS IVPB 12/09/17 22:00 12/14/17 21:59 12/10/17 06:26 Vancomycin HCl (Vanco rx to dose) 1 ea DAILY PRN MISC Per rx protocol 12/10/17 09:00 01/08/18 07:59 Vancomycin HCl/ Dextrose 250 ml @ 166.667 mls/hr Q12HR@1000,2200 IVPB 12/09/17 22:00 12/14/17 09:59 12/10/17 10:26 Tara Ramsey MD Dec 10, 2017 12:33
[2017-12-10] MEDS ORDERED: Sodium Chloride 3% 4ml Nebul Soln INH ONE (13:30)
--- NOTE | 2017-12-10 13:40 | General Progress Note ---
Assessment/Plan Problem List: (1) Pneumonia ICD Codes: J18.9 - Pneumonia, unspecified organism SNOMED: 396737110 (2) HTN (hypertension) ICD Codes: I10 - Essential (primary) hypertension SNOMED: 28212902 (3) Diabetes ICD Codes: E11.9 - Type 2 diabetes mellitus without complications SNOMED: 70731354 (4) COPD (chronic obstructive pulmonary disease) ICD Codes: J44.9 - Chronic obstructive pulmonary disease, unspecified SNOMED: 80508875 (5) Hypoxia ICD Codes: R09.02 - Hypoxemia SNOMED: 428107291 (6) Sepsis ICD Codes: A41.9 - Sepsis, unspecified organism SNOMED: 73388726 Qualifiers: Qualified Codes: A41.9 - Sepsis, unspecified organism (7) UTI (urinary tract infection) ICD Codes: N39.0 - Urinary tract infection, site not specified SNOMED: 18891086 Qualifiers: Qualified Codes: N39.0 - Urinary tract infection, site not specified Status: stable, progressing Assessment/Plan o2 pulm tx abx cbc bmp am Subjective Respiratory: Reports: shortness of breath Allergies: Coded Allergies: No Known Allergies (Unverified , 11/23/12) All Systems: reviewed and negative except above Subjective wants to leave ama Objective Last 24 Hour Vital Signs Date Time Temp Pulse Resp B/P (MAP) Pulse Ox O2 Delivery O2 Flow Rate FiO2 12/10/17 12:24 97.6 62 18 138/81 (100) 94 97.6 12/10/17 09:17 125/80 12/10/17 09:00 Room Air 12/10/17 08:57 81 125/78 12/10/17 08:57 81 125/78 12/10/17 08:33 97.2 81 20 125/78 (94) 97 97.2 12/10/17 05:48 97.0 12/10/17 04:49 97.0 12/10/17 04:00 97.0 79 18 132/67 (88) 93 97.0 12/10/17 00:11 97.3 79 18 142/61 (88) 93 97.3 12/09/17 22:15 Room Air 12/09/17 20:22 97.9 12/09/17 20:00 97.7 94 17 139/70 (93) 100 97.7 12/09/17 16:45 Nasal Cannula 2.0 12/09/17 16:11 97.9 71 18 118/62 (80) 92 97.9 Intake and Output 12/09/17 12/10/17 19:00 07:00 Intake Total 2013.34 ml 720.000 ml Balance 2013.34 ml 720.000 ml Intake Oral 1080 ml 240 ml IV Total 933.34 ml 480.000 ml # Voids 7 4 # Bowel Movements 2 Laboratory Tests 12/10/17 06:50: White Blood Count 9.4#, Red Blood Count 5.16, Hemoglobin 15.0, Hematocrit 44.5, Mean Corpuscular Volume 86, Mean Corpuscular Hemoglobin 29.1, Mean Corpuscular Hemoglobin Concent 33.7, Red Cell Distribution Width 11.7, Platelet Count 311, Mean Platelet Volume 5.4L, Neutrophils (%) (Auto) 52.0, Lymphocytes (%) (Auto) 28.7, Monocytes (%) (Auto) 2.6, Eosinophils (%) (Auto) 15.9H, Basophils (%) ( Auto) 0.8, Sodium Level 139, Potassium Level 3.9, Chloride Level 104, Carbon Dioxide Level 28, Anion Gap 7, Blood Urea Nitrogen 8, Creatinine 0.8, Estimat Glomerular Filtration Rate > 60, Glucose Level 118H, Calcium Level 9.4, Total Bilirubin 0.5, Aspartate Amino Transf (AST/SGOT) 14L, Alanine Aminotransferase ( ALT/SGPT) 22, Alkaline Phosphatase 124H, Pro-B-Type Natriuretic Peptide 321H, Total Protein 8.2, Albumin 3.4, Globulin 4.8, Albumin/Globulin Ratio 0.7L, Vancomycin Level Trough 13.3H Height (Feet): 5 Height (Inches): 4.00 Weight (Pounds): 213 General Appearance: alert EENT: normal ENT inspection Neck: normal alignment Cardiovascular: normal peripheral pulses, normal rate, regular rhythm Respiratory/Chest: chest wall non-tender, decreased breath sounds Abdomen: normal bowel sounds, non tender, soft Extremities: normal inspection Edema: no edema noted Arm (L), no edema noted Arm (R), no edema noted Leg (L), no edema noted Leg (R), no edema noted Pedal (L), no edema noted Pedal (R), no edema noted Generalized Neurologic: responsive, motor weakness Skin: normal pigmentation, warm/dry Cholo Gong DO Dec 10, 2017 13:40
[2017-12-10 15:41] VITALS: BP 133/80
[2017-12-10 20:08] VITALS: BP 121/66
[2017-12-10] MEDS: Atorvastatin 20mg tab ORAL SCH (20:52)
[2017-12-11 04:13] VITALS: BP 128/66
[2017-12-11] MEDS: Piperacillin/Tazobactam 3.375 GM in D5W 110 ML IVPB SCH (05:47)
[2017-12-11] MEDS: NovoLOG Insulin Flexpen SUBQ SCH ×2 (05:47→11:33)
[2017-12-11 06:33] LABS: HEMATOCRIT 45.6 % (37.0-47.0); HEMOGLOBIN 15.1 G/DL (12.0-16.0); MEAN CORPUSCULAR VOLUME 87 FL (80-99); PLATELET COUNT 360 K/UL (150-450); RED BLOOD COUNT 5.27 M/UL (4.20-5.40); RED CELL DISTRIBUTION WIDTH 11.6 % (11.6-14.8); WHITE BLOOD COUNT 9.4 K/UL (4.8-10.8)
[2017-12-11 06:50] LABS: ANION GAP 10 mmol/L (5-15); BLOOD UREA NITROGEN 13 mg/dL (7-18); CALCIUM 9.4 MG/DL (8.5-10.1); CARBON DIOXIDE 27 MMOL/L (21-32); CHLORIDE 104 MMOL/L (98-107); CREATININE 0.8 MG/DL (0.55-1.30); POTASSIUM 3.9 MMOL/L (3.5-5.1); SODIUM 141 MMOL/L (136-145)
[2017-12-11 07:56] VITALS: BP 151/87
[2017-12-11] MEDS: Losartan 25mg tab ORAL SCH (07:57)
[2017-12-11] MEDS: Metoprolol Tartrate 50mg tab ORAL SCH (07:58)
[2017-12-11] MEDS: Aspirin EC 81mg tab ORAL SCH (07:58)
[2017-12-11] MEDS: Docusate 100mg cap ORAL SCH (07:58)
[2017-12-11] MEDS: Heparin 5000 units/ml inj SUBQ SCH (08:02)
[2017-12-11] MEDS: Vancomycin 1250mg/D5W 250ml 250 ML IVPB SCH (11:30)
--- NOTE | 2017-12-11 11:46 | Infectious Diseases Prog Note ---
Assessment/Plan Assessment/Plan Abx: IV Vanco 12/08- Zosyn 12/08- Assessment: Sepsis; SP- 2ry to PNA (CAP) -12/10 CXR: Suspected infiltrate left lung base. No change -12/08 CTA Chest: No evidence of pulmonary embolus. Findings are limited secondary to timing of the contrast bolus and motion artifact. Reticular and ground glass opacity seen within the left lower lobe and lingula which may represent atelectasis and scarring verses inflammatory infectious process. -CT abd/p w/: No acute findings. -u/a wbc 15-20, nit neg, leuk +2; ucx 20-30k mixed gram positive growth ( colonizer) -Bcx NTD Fever, improving Leukocytosis, SP tobacco abuse DM2 hysterectomy HTN CVA HLD COPD Plan: -Switch empiric IV Vanco and Zosyn #4/7 to Levaquin for PNA -OK to discharge home on above regimen (Rx in chart). -f/u cx -Monitor CBC/CMP, temperatures Thank you for this consultation. Will continue to follow along with you. Discussed with RN. Subjective Allergies: Coded Allergies: No Known Allergies (Unverified , 11/23/12) Subjective afebrile >48hrs RA feeling much better wants to go home Objective Vital Signs Last 24 Hour Vital Signs Date Time Temp Pulse Resp B/P (MAP) Pulse Ox O2 Delivery O2 Flow Rate FiO2 12/11/17 09:00 Room Air 12/11/17 07:58 78 151/87 12/11/17 07:58 78 151/87 12/11/17 07:57 151/87 12/11/17 07:56 97.7 78 18 151/87 (108) 95 97.7 12/11/17 04:13 97.2 76 18 128/66 (86) 97 97.2 12/10/17 22:48 98.2 12/10/17 21:00 Room Air 12/10/17 20:08 98.2 76 18 121/66 (84) 95 98.2 12/10/17 15:41 97.9 67 18 133/80 (97) 93 97.9 12/10/17 12:24 97.6 62 18 138/81 (100) 94 97.6 Height (Feet): 5 Height (Inches): 4.00 Weight (Pounds): 213 Objective GENERAL: Calm in bed, oriented x3, in no acute distress. CARDIOVASCULAR: No murmur. LUNGS: CTA x2 ABDOMEN: Bowel sounds positive. Nontender. Nondistended. No cyanosis, clubbing, or edema. NEUROLOGIC: Cranial nerves II through XII grossly intact. Deep tendon reflexes 2+/4. Muscle strength 5/5 bilaterally. Microbiology Date/Time Source Procedure Growth Status 12/08/17 20:47 Blood Blood Culture - Preliminary NO GROWTH AFTER 48 HOURS Resulted 12/08/17 20:47 Blood Blood Culture - Preliminary NO GROWTH AFTER 48 HOURS Resulted 12/08/17 20:25 Urine,Clean Catch Urine Culture - Final Mixed Gram Positive Organism Complete Laboratory Tests Test 12/10/17 18:00 12/11/17 05:10 Urine Legionella Antigen Pending White Blood Count 9.4 K/UL (4.8-10.8) Red Blood Count 5.27 M/UL (4.20-5.40) Hemoglobin 15.1 G/DL (12.0-16.0) Hematocrit 45.6 % (37.0-47.0) Mean Corpuscular Volume 87 FL (80-99) Mean Corpuscular Hemoglobin 28.7 PG (27.0-31.0) Mean Corpuscular Hemoglobin Concent 33.2 G/DL (32.0-36.0) Red Cell Distribution Width 11.6 % (11.6-14.8) Platelet Count 360 K/UL (150-450) Mean Platelet Volume 5.7 FL (6.5-10.1) L Neutrophils (%) (Auto) % (45.0-75.0) Lymphocytes (%) (Auto) % (20.0-45.0) Monocytes (%) (Auto) % (1.0-10.0) Eosinophils (%) (Auto) % (0.0-3.0) Basophils (%) (Auto) % (0.0-2.0) Differential Total Cells Counted 100 Neutrophils % (Manual) 42 % (45-75) L Lymphocytes % (Manual) 43 % (20-45) Monocytes % (Manual) 2 % (1-10) Eosinophils % (Manual) 13 % (0-3) H Basophils % (Manual) 0 % (0-2) Band Neutrophils 0 % (0-8) Platelet Estimate Adequate Platelet Morphology Normal Red Blood Cell Morphology Normal Sodium Level 141 MMOL/L (136-145) Potassium Level 3.9 MMOL/L (3.5-5.1) Chloride Level 104 MMOL/L (98-107) Carbon Dioxide Level 27 MMOL/L (21-32) Anion Gap 10 mmol/L (5-15) Blood Urea Nitrogen 13 mg/dL (7-18) Creatinine 0.8 MG/DL (0.55-1.30) Estimat Glomerular Filtration Rate > 60 mL/min (>60) Glucose Level 115 MG/DL (74-106) H Calcium Level 9.4 MG/DL (8.5-10.1) Current Medications Medications (Trade) Dose Ordered Sig/Zakiya Route PRN Reason Start Time Stop Time Status Last Admin Dose Admin Acetaminophen/ Hydrocodone Bitart ([place] 5/325) 1 tab Q6H PRN ORAL For Pain 12/09/17 15:50 12/16/17 15:49 12/10/17 21:48 Amlodipine Besylate (Norvasc) 5 mg DAILY ORAL 12/10/17 09:00 01/08/18 08:59 12/11/17 07:58 Aspirin (Ecotrin) 81 mg DAILY ORAL 12/10/17 09:00 01/08/18 08:59 12/11/17 07:58 Atorvastatin Calcium (Lipitor) 20 mg BEDTIME ORAL 12/09/17 21:00 01/08/18 20:59 12/10/17 20:52 Dextrose (Dextrose 50%) 25 ml STAT PRN IV Hypoglycemia 12/10/17 04:15 01/08/18 04:14 Dextrose (Dextrose 50%) 50 ml STAT PRN IV Hypoglycemia 12/10/17 04:15 01/08/18 04:14 Docusate Sodium (Colace) 100 mg TWICE A DAY ORAL 12/09/17 18:00 01/08/18 08:59 12/10/17 18:39 Guaifenesin/ Codeine Phosphate (Robitussin with codeine) 5 ml Q6H PRN ORAL For Cough 12/09/17 15:50 01/08/18 15:49 Heparin Sodium (Porcine) (Heparin 5000 units/ml) 5,000 units EVERY 12 HOURS SUBQ 12/09/17 21:00 01/08/18 08:59 12/11/17 08:02 Insulin Aspart (NovoLOG) BEFORE MEALS AND HS SUBQ 12/09/17 16:30 01/08/18 06:29 12/11/17 11:33 Losartan Potassium (Cozaar) 25 mg DAILY ORAL 12/10/17 09:00 01/08/18 08:59 12/11/17 07:57 Metoprolol Tartrate (Lopressor) 50 mg DAILY ORAL 12/10/17 09:00 01/08/18 08:59 12/11/17 07:58 Piperacillin Sod/ Tazobactam Sod 3.375 gm/Dextrose 110 ml @ 27.5 mls/hr EVERY 8 HOURS IVPB 12/09/17 22:00 12/14/17 21:59 12/11/17 05:47 Vancomycin HCl (Vanco rx to dose) 1 ea DAILY PRN MISC Per rx protocol 12/10/17 09:00 01/08/18 07:59 Vancomycin HCl/ Dextrose 250 ml @ 166.667 mls/hr Q12HR@1000,2200 IVPB 12/09/17 22:00 12/14/17 09:59 12/11/17 11:30 Soni Diallo M.D. Dec 11, 2017 11:46
[2017-12-11 11:51] VITALS: BP 142/75
--- NOTE | 2017-12-11 12:04 | Pulmonology Progress Note ---
Assessment/Plan Problems: (1) Left lower lobe pulmonary infiltrate (2) Sepsis (3) UTI (urinary tract infection) (4) Diabetes mellitus (5) COPD (chronic obstructive pulmonary disease) Assessment/Plan afebrile check cultures check sputum titrate fio2 to sat of 92% respiratory treatment dvt prophylaxis on po abx might go home Subjective ROS Limited/Unobtainable: No Constitutional: Reports: no symptoms HEENT: Repors: no symptoms Respiratory: Reports: no symptoms Cardiovascular: Reports: no symptoms Gastrointestinal/Abdominal: Reports: no symptoms Allergies: Coded Allergies: No Known Allergies (Unverified , 11/23/12) Objective Last 24 Hour Vital Signs Date Time Temp Pulse Resp B/P (MAP) Pulse Ox O2 Delivery O2 Flow Rate FiO2 12/11/17 11:51 98.1 65 20 142/75 (97) 97 98.1 12/11/17 09:00 Room Air 12/11/17 07:58 78 151/87 12/11/17 07:58 78 151/87 12/11/17 07:57 151/87 12/11/17 07:56 97.7 78 18 151/87 (108) 95 97.7 12/11/17 04:13 97.2 76 18 128/66 (86) 97 97.2 12/10/17 22:48 98.2 12/10/17 21:00 Room Air 12/10/17 20:08 98.2 76 18 121/66 (84) 95 98.2 12/10/17 15:41 97.9 67 18 133/80 (97) 93 97.9 12/10/17 12:24 97.6 62 18 138/81 (100) 94 97.6 Intake and Output 12/10/17 12/11/17 19:00 07:00 Intake Total 1440.834 ml 360.000 ml Balance 1440.834 ml 360.000 ml Intake Oral 1080 ml IV Total 360.834 ml 360.000 ml # Voids 5 3 # Bowel Movements 2 General Appearance: WD/WN HEENT: normocephalic, atraumatic Respiratory/Chest: chest wall non-tender, lungs clear Breasts: no masses Cardiovascular: normal peripheral pulses, normal rate, no JVD Abdomen: normal bowel sounds, soft, non tender Genitourinary: normal external genitalia Extremities: no cyanosis Skin: no lesions 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 Microbiology Date/Time Source Procedure Growth Status 12/08/17 20:47 Blood Blood Culture - Preliminary NO GROWTH AFTER 48 HOURS Resulted 12/08/17 20:47 Blood Blood Culture - Preliminary NO GROWTH AFTER 48 HOURS Resulted 12/08/17 20:25 Urine,Clean Catch Urine Culture - Final Mixed Gram Positive Organism Complete Laboratory Tests 12/10/17 18:00: Urine Legionella Antigen [Pending] 12/11/17 05:10: White Blood Count 9.4, Red Blood Count 5.27, Hemoglobin 15.1, Hematocrit 45.6, Mean Corpuscular Volume 87, Mean Corpuscular Hemoglobin 28.7, Mean Corpuscular Hemoglobin Concent 33.2, Red Cell Distribution Width 11.6, Platelet Count 360, Mean Platelet Volume 5.7L, Neutrophils (%) (Auto) , Lymphocytes (%) (Auto) , Monocytes (%) (Auto) , Eosinophils (%) (Auto) , Basophils (%) (Auto) , Differential Total Cells Counted 100, Neutrophils % (Manual) 42L, Lymphocytes % (Manual) 43, Monocytes % (Manual) 2, Eosinophils % (Manual) 13H, Basophils % ( Manual) 0, Band Neutrophils 0, Platelet Estimate Adequate, Platelet Morphology Normal, Red Blood Cell Morphology Normal, Sodium Level 141, Potassium Level 3.9 , Chloride Level 104, Carbon Dioxide Level 27, Anion Gap 10, Blood Urea Nitrogen 13, Creatinine 0.8, Estimat Glomerular Filtration Rate > 60, Glucose Level 115H, Calcium Level 9.4 Current Medications Medications (Trade) Dose Ordered Sig/Zakiya Route PRN Reason Start Time Stop Time Status Last Admin Dose Admin Acetaminophen/ Hydrocodone Bitart ([place] 5/325) 1 tab Q6H PRN ORAL For Pain 12/09/17 15:50 12/16/17 15:49 12/10/17 21:48 Amlodipine Besylate (Norvasc) 5 mg DAILY ORAL 12/10/17 09:00 01/08/18 08:59 12/11/17 07:58 Aspirin (Ecotrin) 81 mg DAILY ORAL 12/10/17 09:00 01/08/18 08:59 12/11/17 07:58 Atorvastatin Calcium (Lipitor) 20 mg BEDTIME ORAL 12/09/17 21:00 01/08/18 20:59 12/10/17 20:52 Dextrose (Dextrose 50%) 25 ml STAT PRN IV Hypoglycemia 12/10/17 04:15 01/08/18 04:14 Dextrose (Dextrose 50%) 50 ml STAT PRN IV Hypoglycemia 12/10/17 04:15 01/08/18 04:14 Docusate Sodium (Colace) 100 mg TWICE A DAY ORAL 12/09/17 18:00 01/08/18 08:59 12/10/17 18:39 Guaifenesin/ Codeine Phosphate (Robitussin with codeine) 5 ml Q6H PRN ORAL For Cough 12/09/17 15:50 01/08/18 15:49 Heparin Sodium (Porcine) (Heparin 5000 units/ml) 5,000 units EVERY 12 HOURS SUBQ 12/09/17 21:00 01/08/18 08:59 12/11/17 08:02 Insulin Aspart (NovoLOG) BEFORE MEALS AND HS SUBQ 12/09/17 16:30 01/08/18 06:29 12/11/17 11:33 Levofloxacin (Levaquin) 750 mg DAILY ORAL 12/11/17 13:30 12/18/17 13:29 Losartan Potassium (Cozaar) 25 mg DAILY ORAL 12/10/17 09:00 01/08/18 08:59 12/11/17 07:57 Metoprolol Tartrate (Lopressor) 50 mg DAILY ORAL 12/10/17 09:00 01/08/18 08:59 12/11/17 07:58 Tara Ramsey MD Dec 11, 2017 12:04
--- NOTE | 2017-12-11 13:31 | General Progress Note ---
Assessment/Plan Problem List: (1) Pneumonia ICD Codes: J18.9 - Pneumonia, unspecified organism SNOMED: 158859745 (2) HTN (hypertension) ICD Codes: I10 - Essential (primary) hypertension SNOMED: 79082444 (3) Diabetes ICD Codes: E11.9 - Type 2 diabetes mellitus without complications SNOMED: 27339063 (4) COPD (chronic obstructive pulmonary disease) ICD Codes: J44.9 - Chronic obstructive pulmonary disease, unspecified SNOMED: 30944589 (5) Hypoxia ICD Codes: R09.02 - Hypoxemia SNOMED: 663295616 (6) Sepsis ICD Codes: A41.9 - Sepsis, unspecified organism SNOMED: 94581524 Qualifiers: Qualified Codes: A41.9 - Sepsis, unspecified organism (7) UTI (urinary tract infection) ICD Codes: N39.0 - Urinary tract infection, site not specified SNOMED: 34987944 Qualifiers: Qualified Codes: N39.0 - Urinary tract infection, site not specified Status: stable, progressing Assessment/Plan o2 pulm tx abx dc if clear Subjective Constitutional: Reports: weakness Allergies: Coded Allergies: No Known Allergies (Unverified , 11/23/12) All Systems: reviewed and negative except above Subjective sl weak Objective Last 24 Hour Vital Signs Date Time Temp Pulse Resp B/P (MAP) Pulse Ox O2 Delivery O2 Flow Rate FiO2 12/11/17 11:51 98.1 65 20 142/75 (97) 97 98.1 12/11/17 09:00 Room Air 12/11/17 07:58 78 151/87 12/11/17 07:58 78 151/87 12/11/17 07:57 151/87 12/11/17 07:56 97.7 78 18 151/87 (108) 95 97.7 12/11/17 04:13 97.2 76 18 128/66 (86) 97 97.2 12/10/17 22:48 98.2 12/10/17 21:00 Room Air 12/10/17 20:08 98.2 76 18 121/66 (84) 95 98.2 12/10/17 15:41 97.9 67 18 133/80 (97) 93 97.9 Intake and Output 12/10/17 12/11/17 19:00 07:00 Intake Total 1440.834 ml 360.000 ml Balance 1440.834 ml 360.000 ml Intake Oral 1080 ml IV Total 360.834 ml 360.000 ml # Voids 5 3 # Bowel Movements 2 Laboratory Tests 12/10/17 18:00: Urine Legionella Antigen [Pending] 12/11/17 05:10: White Blood Count 9.4, Red Blood Count 5.27, Hemoglobin 15.1, Hematocrit 45.6, Mean Corpuscular Volume 87, Mean Corpuscular Hemoglobin 28.7, Mean Corpuscular Hemoglobin Concent 33.2, Red Cell Distribution Width 11.6, Platelet Count 360, Mean Platelet Volume 5.7L, Neutrophils (%) (Auto) , Lymphocytes (%) (Auto) , Monocytes (%) (Auto) , Eosinophils (%) (Auto) , Basophils (%) (Auto) , Differential Total Cells Counted 100, Neutrophils % (Manual) 42L, Lymphocytes % (Manual) 43, Monocytes % (Manual) 2, Eosinophils % (Manual) 13H, Basophils % ( Manual) 0, Band Neutrophils 0, Platelet Estimate Adequate, Platelet Morphology Normal, Red Blood Cell Morphology Normal, Sodium Level 141, Potassium Level 3.9 , Chloride Level 104, Carbon Dioxide Level 27, Anion Gap 10, Blood Urea Nitrogen 13, Creatinine 0.8, Estimat Glomerular Filtration Rate > 60, Glucose Level 115H, Calcium Level 9.4 Height (Feet): 5 Height (Inches): 4.00 Weight (Pounds): 213 General Appearance: alert EENT: normal ENT inspection Neck: normal alignment Cardiovascular: normal peripheral pulses, normal rate, regular rhythm Respiratory/Chest: chest wall non-tender, lungs clear, normal breath sounds Abdomen: normal bowel sounds, non tender, soft Extremities: normal inspection Edema: no edema noted Arm (L), no edema noted Arm (R), no edema noted Leg (L), no edema noted Leg (R), no edema noted Pedal (L), no edema noted Pedal (R), no edema noted Generalized Neurologic: responsive, motor weakness Skin: normal pigmentation, warm/dry Cholo Gong DO Dec 11, 2017 13:31
[2017-12-11] MEDS ORDERED: LEVAQUIN750 MG ORAL (14:16)
--- NOTE | 2017-12-12 11:59 | Discharge Summary ---
Discharge Summary Discharge Summary _ DATE OF ADMISSION: 12/08/2017 DATE OF DISCHARGE: 12/11/2017 REASON FOR ADMISSION: 57 years old female with past medical history of hypertension, COPD, CVA, diabetes mellitus, presented to emergency department with complaint of dyspnea, leg pain and swelling. Patient reported some chest discomfort and congestion, but denied productive cough. Patient reported dyspnea on exertion. She also reported increased weakness and headache. Patient also reported pain in abdomen ,constant, pressure-like , no nausea, no vomiting, no diarrhea. No oxygen at home . Upon evaluation vital signs revealed fever and hypoxia . Pulse oximetry was only 81% on room air. Patient required placement on supplemental oxygen. Laboratory workup revealed leukocytosis with WBC 23.6. Troponin negative. Glucose 136. Stable hemoglobin and hematocrit, renal parameters and electrolytes. Urinalysis with evidence of pyuria and few bacteria. Urine toxicology screen was negative. Chest x-ray revealed perihilar and infrahilar opacities, probably representing infectious process versus early vasculature congestion. CTA of the chest/ thorax revealed no evidence of pulmonary embolism . Noted reticular and ground glass opacities in the left lower lobe and lingula, possibly representing atelectasis and scaring versus inflammation/infection. CT of the abdomen and pelvis revealed no acute intra-abdominal pathology. Patient was admitted with diagnoses of sepsis ,hypoxia, pneumonia, possible UTI , COPD, diabetes mellitus. CONSULTANTS: pulmonary Dr. Ramsey ID specialist Dr. Jauregui [facility] COURSE: Patient admitted. Supplemental oxygen provided and titrated to keep pulse oximetry above 92%. Pulmonary toilet with bronchodilators provided. Patient started on empiric antibiotics. Facility Designer and ID specialist closely followed. Antitussive provided as needed. DVT prophylaxis provided. Leukocytosis resolved. Urine culture revealed mixed gram-positive organisms. Blood culture were negative. Patient need to complete antibiotic course at home with oral antibiotics as per ID specialist recommendations. Blood pressure was managed with calcium channel elenita, angiotensin receptor elenita and beta elenita. Blood pressure remained stable. Antiplatelet therapy with aspirin and statin were continued. Blood sugar was managed with sliding scale insulin. Bowel regimen instituted. Pain management was addressed, and pain was controlled . Supportive care provided. Patient was counseled on smoking cessation. Patient clinically improved and was stable for discharge home. Patient clinically improved : afebrile, leukocytosis resolved, pulse oximetry stable on room air. FINAL DIAGNOSES: Sepsis ( due to pneumonia) Community-acquired pneumonia Hypoxia ( due to pneumonia) Tobacco abuse COPD/asthma Diabetes mellitus Hypertension History of CVA DISCHARGE MEDICATIONS: See Medication Reconciliation list. DISCHARGE INSTRUCTIONS: Patient was discharged home with home health services. Follow up with primary care provider in one week. I have been assigned to dictate discharge summary for this account. I was not involved in the patient's management. Chely Ross NP Dec 12, 2017 11:59
== END 2017-12-11 14:40 | disposition home or self-care (01) | DRG 871 ==
LOC: EMR 20:20 → 2W 21:55 → EDBEDREQ 22:36 → 4W 12-09 14:50
DX: A41.9 Sepsis, unspecified organism (principal); J18.9 Pneumonia, unspecified organism; N39.0 Urinary tract infection, site not specified; I10 Essential (primary) hypertension; R09.02 Hypoxemia; E11.9 Type 2 diabetes mellitus without complications; Z79.84 Long term (current) use of oral hypoglycemic drugs; J44.9 Chronic obstructive pulmonary disease, unspecified; Z86.73 Personal history of transient ischemic attack (TIA), and cerebral infarction without residual deficits; F17.200 Nicotine dependence, unspecified, uncomplicated; Z90.710 Acquired absence of both cervix and uterus
CPT/HCPCS: 36415; 36600; 71045; 71275; 74177; 80048; 80053; 80202; 80307; 81003; 82164; 82550; 82803; 82962; 83605; 83690; 83880; 84484; 85007; 85025; 85610; 85730; 86850; 86870; 86900; 86901; 87040; 87086; 93005; 94640; 99285; J1815; J2405

== ENCOUNTER 2017-12-29 20:08 | Emergency (ER) | payer OTHER ==
[~2017-12-29] VITALS: Ht 162.6 cm; Wt 96.6 kg
[~2017-12-29 20:08] MED LIST changes: +LEVAQUIN750 MG ORAL
[2017-12-29 20:45] VITALS: BP 141/81
[2017-12-29] MEDS ORDERED: Albuterol/Ipratropium 3ml neb HHN ONE (21:00)
[2017-12-29] MEDS ORDERED: Acetaminophen 500mg (ES) tab ORAL ONE (21:00)
[2017-12-29] MEDS ORDERED: CYCLOBENZAPRINE10 MG ORAL (21:52)
--- NOTE | 2017-12-29 21:55 | Diagnostic Imaging Report ---
EXAM: CT Lumbar Spine Without Intravenous Contrast CLINICAL HISTORY: PAIN TECHNIQUE: Axial computed tomography images of the lumbar spine without intravenous contrast. CTDI is 21.85 + 0.25 mGy and DLP is 657 mGy-cm. One or more of the following dose reduction techniques were used: automated exposure control, adjustment of the mA and/or kV according to patient size, use of iterative reconstruction technique. COMPARISON: No relevant prior studies available. FINDINGS: Vertebrae: No acute fracture. Discs/spinal canal/neural foramina: Degenerative changes. Soft tissues: Unremarkable. IMPRESSION: No fracture or malalignment.
[2017-12-29] MEDS ORDERED: ALBUTEROL SULF8.5 GM INH (21:59)
[2017-12-29 22:00] VITALS: BP 141/81
--- NOTE | 2017-12-30 00:13 | Emergency Room Report ---
History of Present Illness General Chief Complaint: Multiple Trauma/Fall Source: Patient, Medical Record Present Illness HPI Patient is a 57-year-old female who presented after fall. Patient reports having recent fall at a store. She reports having slipped on water. Subsequently landing on her buttocks. She reports having increased low back pain. Patient reports being diabetic. She denies any head injury. She reports having worsened pain to her back. She denies any neck discomfort. She had been moving all extremities. Patient appeared by walk in. Allergies: Coded Allergies: No Known Allergies (Unverified , 11/23/12) Patient History Past Medical History: unable to obtain Last Menstrual Period: Hysterectomy 10 yrs ago Reviewed Nursing Documentation: PMH: Agreed; PSxH: Agreed Nursing Documentation-PM Past Medical History: No History, Except For Hx Cardiac Problems: Yes - STROKE 2012 Hx Hypertension: Yes Hx Asthma: Yes Hx Diabetes: Yes - since 2007 Hx Cancer: No Hx Gastrointestinal Problems: No Hx Neurological Problems: Yes Hx Cerebrovascular Accident: Yes Review of Systems All Other Systems: negative except mentioned in HPI Physical Exam Vital Signs Date Time Temp Pulse Resp B/P (MAP) Pulse Ox O2 Delivery O2 Flow Rate FiO2 12/29/17 20:35 97.9 80 17 141/81 95 Room Air 97.9 12/29/17 21:43 21 Sp02 EP Interpretation: reviewed, normal General Appearance: normal inspection, alert, no apparent distress, GCS 15 Head: normocephalic, atraumatic Eyes: normal eye exam, PERRL, EOMI, lids + conjunctiva normal, no hyphema, no racoon eyes ENT: normal ENT inspection, TMs + canals normal, oropharynx normal, no talley signs Neck: trach midline, no bony tend, full range of motion without pain Respiratory: effort normal, no retractions, clear to auscultation, chest symmetrical, palpation of chest normal, speaking in full sentences Cardiovascular: regular rate, rhythm, no JVD Cardiovascular #2: 2+ radial (R), 2+ radial (L), 2+ dorsalis pedis (R), 2+ dorsalis pedis (L) Gastrointestinal: normal inspection, non-tender, non-distended, no rebound/ guarding, normal bowel sounds Genitourinary: normal inspection Musculoskeletal: normal inspection, normal ROM, non-tender, back normal Skin: no rash, no lacerations, normal palpation Lymphatic: normal inspection Neurologic: oriented x3, sensory intact, motor strength/tone normal, normal speech Psychiatric: normal inspection, memory normal, mood normal, no suicidal/ homicidal ideation Medical Decision Making Diagnostic Impression: Primary Impression: Low back pain Additional Impression: Diabetes ER Course Patient presented for low back pain.Differential diagnosis included but was not limited to herniated disc, cauda equina syndrome, abdominal aortic aneurysm, perforated ulcer, spinal epidural abscess, spinal stenosis, lumbar fracture, metastatic lesion, pyelonephritis. The patient was noted to have some evidence of chronic lung disease from smoking. Patient was advised sensation. Imaging of the lumbar spine showed calcifications of the aorta. Patient was advised to return if she began having any worsening condition. She is advised follow-up with her primary care physician for further evaluation of arterial calcifications.Patient is given prescription for muscle relaxant and albuterol. Last Vital Signs Date Time Temp Pulse Resp B/P (MAP) Pulse Ox O2 Delivery O2 Flow Rate FiO2 12/29/17 22:00 97.9 20 141/81 100 Room Air 21 208.2 12/29/17 21:56 68 Status: improved Disposition: HOME, SELF-CARE Condition: Stable Scripts Albuterol Sulfate* (ALBUTEROL SULFATE MDI*) 8.5 Gm Hfa.aer.ad 2 PUFF INH Q4H PRN for cough/wheezing, #1 EA 0 Refills Prov: Anil Dubose MD 12/29/17 Cyclobenzaprine Hcl* (FLEXERIL*) 10 Mg Tablet 10 MG ORAL TID PRN for Muscle Spasm, #20 TAB Prov: Anil Dubose MD 12/29/17 Patient Instructions: Lumbosacral Strain Anil Dubose MD Dec 30, 2017 00:13
== END 2017-12-29 22:00 | disposition home or self-care (01) ==
LOC: EMR 21:00
DX: M54.5 Low back pain (principal); J45.909 Unspecified asthma, uncomplicated; E11.9 Type 2 diabetes mellitus without complications; I10 Essential (primary) hypertension; Z72.0 Tobacco use; Z86.73 Personal history of transient ischemic attack (TIA), and cerebral infarction without residual deficits
CPT/HCPCS: 72131; 94640; 99284; J7620